=== PATIENT | male | born 1960 | race Two or more races ===

== ENCOUNTER 2025-03-18 17:29 | Inpatient (IN) | payer MEDICARE, MEDICAID, SELFPAY ==
[2025-03-18] VITALS (10 sets, daily range): BP systolic 140–212; BP diastolic 87–112; PULSE 55–73; RESP 17–22; TEMP 36.9–37; O2SAT 93–98
--- NOTE | 2025-03-18 17:34 | EKG_ITS ---
[facility] Test Date: 2025-03-18 Pat Name: TRUNG STEVENSON Department: Room: - Gender: Male Spanish Lecturer: : 1960 Requested By: Luma Hearn Order Number: [id number] Reading MD: Luma Hearn Measurements Intervals Bunch Rate: 66 P: 27 ME: 172 QRS: 8 QRSD: 102 T: 30 QT: 408 QTc: 430 Interpretive Statements SINUS RHYTHM NONSPECIFIC ST & T-WAVE ABNORMALITY Compared to ECG 07/03/2021 15:55:00 T-wave abnormality now present /store/S0/[id number]
--- NOTE | 2025-03-18 17:57 | XR_ITS ---
EXAMINATION: PA chest single view TECHNIQUE: Upright PA chest single view Date and time: March 18, 2025, 1813 hours, comparison July 03, 2021 INDICATIONS: Chest pain today. FINDINGS: Normal heart size Lungs are clear. The osseous structures are intact. IMPRESSION: No active disease
--- NOTE | 2025-03-18 17:58 | PD.EDRME ---
Rapid Medical Screening Exam RME Arrival date/time: 03/18/25 17:29 This is a case of 64-year-old male with history of hypertension hyperlipidemia came into the emergency room due to chest pain on and off for 2 days associated with elevated blood pressure denies any numbness weakness tingling sensation no blurring of vision denies any palpitation no shortness of breath Chief Complaint: Chest Pain Time Seen by Provider: 03/18/25 17:57 Vital signs: Vital Signs Temperature 98.6 F 03/18/25 17:36 Pulse Rate 66 03/18/25 17:36 Respiratory Rate 18 03/18/25 17:36 Blood Pressure 202/100 H 03/18/25 17:36 Pulse Oximetry (%) 98 03/18/25 17:36 Oxygen Delivery Method Room Air 03/18/25 17:36
[2025-03-18 18:42] LABS: Basophils # (Auto) 0.1 Thou/mm3 (0.0-0.2); Basophils % (Auto) 1 % (0-2.5); Eosinophils # (Auto) 0.4 Thou/mm3 (0.0-0.5); Eosinophils % (Auto) 3 % (0-10); Hematocrit 51.1 % (41.0-53.0); Hemoglobin 17.9 g/dL (13.5-16.0); Immature Granulocytes Auto 0.08 Thou/mm3 (0.00-0.00); Lymphocytes # (Auto) 2.8 Thou/mm3 (1.0-4.8); Lymphocytes % (Auto) 23 % (10-50); Mean Corpuscular HGB Conc 35.0 g/dl (31.0-37.0); Mean Corpuscular Hemoglobin 28.9 pg (25.0-35.0); Mean Corpuscular Volume 82 fL (80-100); Monocytes # (Auto) 0.9 Thou/mm3 (0.0-0.8); Monocytes % (Auto) 8 % (0-12); Neutrophils # (Auto) 7.9 Thou/mm3 (1.8-7.7); Neutrophils % (Auto) 65 % (37-80); Nucleated Red Blood Cell # 0.00 Thou/mm3 (0.00-0.00); Nucleated Red Blood Cell % 0 /100 WBC (0); Platelet Count 335 Thou/mm3 (140-440); RDW Standard Deviation 44.7 fL (35.1-43.9); Red Blood Count 6.20 Miln/mm3 (4.50-5.90); White Blood Count 12.1 Thou/mm3 (3.8-10.6)
[2025-03-18 18:50] LABS: Collection Type, Urine Clean Catch; Squamous Epithelial Cell,Urine 0 /hpf (0-5)
[2025-03-18 19:03] LABS: Bilirubin,Urine Negative (Negative); Blood,Urine 1+ (Negative); Clarity,Urine Clear (Clear/Hazy); Color,Urine Colorless (Lt Yel-Yel); Glucose, Urine 4+ (Negative); Ketones,Urine Negative (Negative); Leukocyte Esterase,Urine Negative (Negative); Nitrite,Urine Negative (Negative); PH,Urine 6.0 (5.0-7.0); Protein,Urine 1+ (Neg - Trace); RBC,Urine 3 /hpf (0-3); Specific Gravity,Urine 1.012 (1.001-1.035); Urobilinogen,Urine Negative mg/dL (0.0-1.0); WBC,Urine 1 /hpf (0-5)
[2025-03-18 19:04] LABS: B-Type Natriuretic Peptide 36 pg/mL (0-100)
[2025-03-18 19:06] LABS: Alanine Aminotransferase 29 U/L (10-49); Albumin, Serum 4.9 gm/dL (3.4-4.8); Albumin/Globulin Ratio 1.7 (1.2-2.2); Alkaline Phosphatase 89 U/L (46-116); Anion Gap 12 (7-16); Aspartate Amino Transferase 25 U/L (0-34); BUN/Creatinine Ratio 11 Ratio (12-20); Bilirubin,Total 0.8 mg/dL (0.3-1.2); Blood Urea Nitrogen 14 mg/dL (9-23); Calcium 9.9 mg/dL (8.3-10.6); Calcium (Corrected) 9.9 mg/dL (8.5-10.1); Carbon Dioxide 25.5 mMol/L (20.0-31.0); Chloride 103 mMol/L (98-107); Creatinine (Component) 1.3 mg/dL (0.6-1.3); Globulin 2.9 gm/dL (2.3-3.5); Glucose 134 mg/dL (74-106); Osmolality,Calculated 281 (275-295); Potassium 3.6 mMol/L (3.4-5.1); Sodium 140 mMol/L (136-145); Total Protein 7.8 gm/dL (5.7-8.2); eGFR > 60 See Note
[2025-03-18 19:07] LABS: Troponin I 0.081 ng/mL (0.0-0.045)
[2025-03-18 19:09] LABS: D-Dimer < 250 ng/mL (<600)
--- NOTE | 2025-03-18 20:36 | PD.EDCHEST ---
ED Chest Pain RME/HPI General Chief Complaint: Chest Pain Stated Complaint: CHEST PAIN RADAITES L ARM Time Seen by Provider: 03/18/25 17:57 Source: patient and family Arrival date/time: 03/18/25 17:29 RME / HPI RME / HPI narrative: 03/18/25 17:29 This is a case of 64-year-old male with history of hypertension hyperlipidemia came into the emergency room due to chest pain on and off for 2 days associated with elevated blood pressure denies any numbness weakness tingling sensation no blurring of vision denies any palpitation no shortness of breath DR. GRISELDA SCHUMACHER ED EVALUATION: 64 y/o male with Hx of presents to ED c/o chest pain radiating to the left arm s/p going to the gym this morning and have worsened throughout the day. Denies any surgical history. Denies fevers, chills, nausea, vomiting, cough, runny nose, abdominal pain, dysuria, hematuria, melena, and bloody stools. Also denies drugs, alcohol, and tobacco. No recent travel or sick contacts. Related Data Home Medications ?Medication ?Instructions ?Recorded ?Confirmed amlodipine 10 mg tablet (Norvasc) 10 mg PO QDAY #0 tabs 05/21/16 03/19/25 valsartan 160 mg tablet (Diovan) 160 mg PO QDAY 02/23/19 03/19/25 atorvastatin 80 mg tablet 80 mg PO QDAY 04/18/21 03/19/25 atorvastatin 20 mg tablet 20 mg PO QDAY 03/19/25 03/19/25 empagliflozin 12.5 mg-metformin ER 1 tab PO BID 03/19/25 03/19/25 1,000 mg tablet,extended rel 24 hr (Synjardy XR) ergocalciferol (vitamin D2) 1,250 1,250 mcg PO QWEEK 03/19/25 03/19/25 mcg (50,000 unit) capsule fexofenadine 180 mg tablet 180 mg PO .QD 03/19/25 03/19/25 losartan 100 1 tab PO .QD 03/19/25 03/19/25 mg-hydrochlorothiazide 25 mg tablet multivitamin 1 tab PO .QD 03/19/25 03/19/25 propranolol 20 mg tablet 20 mg PO Q8H 03/19/25 03/19/25 Allergies Allergy/AdvReac Type Severity Reaction Status Date / Time No Known Allergies Allergy Verified 03/18/25 17:32 Review of Systems Review of Systems Systems Reviewed: All systems reviewed, normal except as documented Past Medical History Past Medical History NEUROLOGIC: 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 APPEARANCE: The patient is alert awake oriented X-3 in no distress, lying down comfortably, does not look ill/toxic. Patient has good eye contact. Patient is cooperative. VITALS: All vitals were reviewed and the pulse ox is 96% on room air which is normal according to my interpretation. HEENT: Normocephalic, atraumatic. Pupils are equal and reactive. Oral mucosa is moist. Patent Nares NECK: Supple, nontender, no thyromegaly, no meningismus, no JVD CHEST: Symmetrical, atraumatic, and with equal expansion , Nontender on palpation no deformity and no crepitus. CARDIOVASCULAR: Heart regular rhythm no murmur or gallop rub or extra beats. LUNGS: Clear to auscultation bilaterally with symmetrical chest rise. No laboring tachypnea or wheezing. No intercostal subcostal retraction. No rales and no rhonchi. ABDOMEN: Soft, flat, nontender to palpation, no guarding or rebound tenderness. There are no abnormal masses palpated. Active and normal bowel sounds. EXTREMITIES: Nontender. No edema. No cyanosis. Patient is able to move all 4 extremities well, with full ROM and good CSM. SKIN: Warm and dry, no jaundice or rashes noted. NEURO: Patient is MORALES x 4, Cranial nerves II through XII grossly intact. There is no focal neurologic deficits noted. 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 PSYCHIATRIC: Patient is in normal mood and affect. Course Quality Measures none Orders Category Date Time Status EKG (ED ONLY) *Do not use* NOW Care 03/18/25 17:34 Completed EKG (ED ONLY) *Do not use* NOW Care 03/18/25 20:56 Completed Notify provider NOW Care 03/18/25 20:55 Active EKG (ED Only) Stat Exams 03/18/25 17:34 Draft EKG (ED Only) Stat Exams 03/18/25 20:56 Draft XR chest 1V Stat Exams 03/18/25 17:57 Completed BNP [B-Type Natriuretic Peptide] Stat Lab 03/18/25 18:25 Completed CBC Stat Lab 03/18/25 18:25 Completed Comprehensive Metabolic Panel Stat Lab 03/18/25 18:25 Completed D-Dimer Stat Lab 03/18/25 18:25 Completed Partial Thromboplastin Time AM DRAW Lab 03/20/25 05:00 Ordered Prothrombin Time with INR AM DRAW Lab 03/20/25 05:00 Ordered Troponin I Stat Lab 03/18/25 18:25 Completed Troponin I Stat Lab 03/18/25 21:09 Completed Urinalysis Stat Lab 03/18/25 18:31 Completed Aspirin Chew Med 03/18/25 20:45 Discontinued 324 mg PO X1 ONE Heparin Inj Med 03/18/25 20:55 Discontinued 4,000 unit IV X1 ONE Heparin/D5w 25K 250 ML Ivpb [Heparin in D5w Ivpb] Med 03/18/25 21:00 Discontinued 25,000 unit in 250 ml IV 12 units/kg/hr Nitroglycerin [Nitrostat 1/150] Med 03/18/25 20:45 Active 0.4 mg SL Q5MIN PRN cloNIDine HCL [Catapres] Med 03/18/25 17:57 Discontinued 0.2 mg PO X1 ONE hydrALAZINE INJ [Apresoline Inj] Med 03/18/25 20:59 Discontinued 10 mg IVP X1 ONE Vital Signs Vital signs: Vital Signs Temperature 98.6 F 03/18/25 17:36 Pulse Rate 66 03/18/25 17:36 Respiratory Rate 18 03/18/25 17:36 Blood Pressure 202/100 H 03/18/25 17:36 Pulse Oximetry (%) 98 03/18/25 17:36 Oxygen Delivery Method Room Air 03/18/25 17:36 Chest Pain MDM Narrative MDM Narrative:: Scribe Attestation: Yokasta Chapman am scribing for and in the presence of Dr. Almodovar. Provider Notation: Although this document has been carefully reviewed, there may still be some phonetic and other typographical errors. These errors are purely grammatical due to imperfections in the software program and should not be construed in any way to compromise the substance of the patient's medical care during this visit. Patient is a 64-year-old male with medical history notable for hypertension, hyperlipidemia, diabetes is in emerged primary concerns for chest pain that radiates to the left upper extremity. Vital signs and exam as listed. Concern for ACS arrhythmia electrolyte abnormality viral syndrome pneumonia hypertensive emergency among others. Patient was evaluated by prior provider. They ordered labs EKG and chest x-ray. On my evaluation patient continues to have chest pain. Ordered aspirin, sublingual nitroglycerin. Patient's blood pressure has improved since he arrived. Previously was 202/100 currently is 192/100, will provide antihypertensive medication to lower blood pressure and volume total of approximately 20% while in the ED. Labs were leukocytosis 12.1, no left shift. Hemoglobin 17.9. Dimer not elevated. No acute metabolic disturbance. Troponin is 0.081. Urinalysis without evidence of infection. Chest x-ray unremarkable. EKG performed today at 1736 notable for sinus rhythm, heart rate 66, normal intervals, patient has ST depressions in lead I, 2; has ST elevation in elevation in lead aVR, also with depressions in lead V2, V3, elevations in V5 V6. Consulted on-call commissary agent Dr. Moeller, recommends admission, heparin. Repeat EKG shows dynamic changes. Discussed them with on-call commissary agent Dr. Moeller, not a cardiac alert. States that if his troponin increases he will likely perform a cardiac catheterization. Discussed case with hospitalist service, send accepts patient for admission. 9:20p reevaluated patient, patient is GCS 15, hemodynamically stable nondistressed blood pressure controlled, chest pain resolved. Patient data External records reviewed:: [facility] previous records (Reviewed prior ED records from 07/03/21. Patient was seen for Weakness.) Clinical information provided by:: patient Social determinants that could affect healthcare access:: none Patient has the following chronic illnesses:: HTN, Hypercholesterolemia How is presenting disease/condition affected by chronic disease/condition?: exacerbated by Evaluation data The following diagnostics were reviewed and interpreted by me:: lab results, radiology exam(s) and EKG tracing(s) (EKG (II) performed today at 21:18 notable for sinus rhythm, heart rate 63, normal intervals, patient has ST depressions in lead II, 3 eVF; has T-wave elevation in Lead III, also with depressions in V3, V4, V5, and V6, per my interpretation.) Lab and/or radiology exams considered but not ordered:: None Interpretation Summary: RADIOLOGY Chest X-Ray: FINDINGS: Normal heart size Lungs are clear. The osseous structures are intact. IMPRESSION: No active disease Medications / Prescriptions Medications or Prescriptions considered but not ordered:: None Medication administrations:: Medication Administration History Acetaminophen (Acetaminophen 325 Mg Tablet) 650 mg PO Q6H PRN PRN Reason: Fever >100.4 Stop: 04/17/25 21:43 Acetaminophen (Acetaminophen 325 Mg Tablet) 650 mg PO Q6H PRN PRN Reason: PAIN SCALE 1-3 (mild Stop: 04/17/25 21:43 Last Admin: 03/19/25 02:12 Dose: 650 mg Documented By: ROXANN Amlodipine Besylate (Amlodipine Besylate 5 Mg Tablet) 10 mg PO QDAY [facility]CEDEZ Stop: 04/18/25 08:59 Last Admin: 03/19/25 07:45 Dose: 10 mg Documented By: ELADIA Aspirin (Aspirin Ec 81 Mg Tabec) 81 mg PO QDAY MERCEDEZ Stop: 04/18/25 08:59 Last Admin: 03/19/25 07:45 Dose: 81 mg Documented By: ELADIA Atorvastatin Calcium (Atorvastatin Calcium 20 Mg Tablet) 80 mg PO HS [facility] Stop: 04/18/25 20:59 Carvedilol (Carvedilol 12.5 Mg Tablet) 25 mg PO BIDWM MERCEDEZ Stop: 04/18/25 07:59 Last Admin: 03/19/25 17:21 Dose: 25 mg Documented By: Admin: 03/19/25 07:44 Dose: 25 mg Documented By: ELADIA Dextrose (Dextrose 50%-Water Inj 50 Ml Syringe) 25 ml IV Q15MIN PRN PRN Reason: BG 50-70 responsive npo pt Stop: 04/18/25 05:54 Dextrose (Dextrose 50%-Water Inj 50 Ml Syringe) 50 ml IV Q15MIN PRN PRN Reason: BG <50 OR BG <70 & pt unresponsive Stop: 04/18/25 05:54 Glucagon (Glucagon Inj 1 Mg Vial) 1 mg IM Q15MIN PRN PRN Reason: BG <70, and no IV access Insulin Human Lispro (Insulin Lispro (Admelog) 1 Unit/0.01 Ml Unit) 0 unit SC Q6HR MERCEDEZ; Protocol Stop: 04/18/25 05:59 Last Admin: 03/19/25 17:29 Dose: 4 unit Documented By: ELADIA Co-signed By: CYNDIE Admin: 03/19/25 12:00 Dose: Not Given Documented By: EC Non-Admin Reason: Per Protocol Admin: 03/19/25 06:08 Dose: Not Given Documented By: MLD Non-Admin Reason: Per Protocol Labetalol HCl (Labetalol Inj 5 Mg/Ml Vial 20 Ml) 10 mg IVP PRN PRN PRN Reason: SBP>180 Stop: 04/17/25 22:28 Morphine Sulfate (Morphine Sulf Inj 4 Mg/Ml Vial) 2 mg IVP Q4HR PRN PRN Reason: PAIN SCALE 7-10 (Severe Last Admin: 03/19/25 00:16 Dose: 2 mg Documented By: ELADIA(2) Nitroglycerin (Nitroglycerin 0.4 Mg Subl Btl #25) 0.4 mg SL Q5MIN PRN PRN Reason: CHEST PAIN Last Admin: 03/19/25 07:44 Dose: 0.4 mg Documented By: Admin: 03/18/25 21:03 Dose: 0.4 mg Documented By: ELADIA(2) Comments: two of three Ondansetron HCl (Ondansetron Inj 2 Mg/Ml Inj 2 Ml) 4 mg IVP Q6H PRN; Protocol PRN Reason: NAUSEA OR VOMITING Stop: 04/17/25 21:43 Sennosides (Senna Tablet) 1 tab PO QDAY PRN; Protocol PRN Reason: constipation Stop: 04/17/25 21:43 Ticagrelor (Ticagrelor 90 Mg Tablet) 90 mg PO BID [facility] Stop: 04/18/25 20:59 Valsartan (Valsartan 80 Mg Tablet) 160 mg PO QDAY MERCEDEZ Stop: 04/18/25 08:59 Last Admin: 03/19/25 07:46 Dose: 160 mg Documented By: ELADIA Discontinued Medications Adenosine (Adenosine Inj 3 Mg/Ml Vial) Confirm Administered Dose 30 mg .ROUTE .STK-MED ONE Stop: 03/19/25 08:57 Last Admin: 03/19/25 09:47 Dose: Not Given Documented By: Non-Admin Reason: Duplicate Medication on eMAR Amiodarone HCl (Amiodarone Inj 50 Mg/Ml Vial 9 Ml) Confirm Administered Dose 900 mg IV .STK-MED ONE Stop: 03/19/25 08:57 Last Admin: 03/19/25 09:48 Dose: Not Given Documented By: Non-Admin Reason: Duplicate Medication on eMAR Aspirin (Aspirin 81 Mg Chew) 324 mg PO X1 ONE Stop: 03/18/25 20:46 Last Admin: 03/18/25 21:05 Dose: 324 mg Documented By: ELADIA(2) Aspirin (Aspirin Ec 81 Mg Tabec) 81 mg PO X1 ONE Stop: 03/18/25 21:51 Last Admin: 03/18/25 23:49 Dose: Not Given Documented By: AC(2) Non-Admin Reason: Discontinued Aspirin (Aspirin 325 Mg Tablet) Confirm Administered Dose 325 mg .ROUTE .STK-MED ONE Stop: 03/19/25 08:57 Last Admin: 03/19/25 09:48 Dose: Not Given Documented By: Non-Admin Reason: Duplicate Medication on eMAR Aspirin (Aspirin 81 Mg Chew) Confirm Administered Dose 324 mg .ROUTE .STK-MED ONE Stop: 03/19/25 08:57 Last Admin: 03/19/25 09:48 Dose: Not Given Documented By: Non-Admin Reason: Duplicate Medication on eMAR Atropine Sulfate (Atropine Sulf Inj 1 Mg/Ml Vial) Confirm Administered Dose 1 mg .ROUTE .STK-MED ONE Stop: 03/19/25 08:56 Last Admin: 03/19/25 09:09 Dose: Not Given Documented By: DANYELLE Non-Admin Reason: Duplicate Medication on eMAR Clonidine (Clonidine Hcl 0.1 Mg Tablet) 0.2 mg PO X1 ONE Stop: 03/18/25 17:58 Last Admin: 03/18/25 21:01 Dose: 0.2 mg Documented By: ELADIA(2) Epinephrine HCl (Epinephrine Inj 0.1 Mg/Ml Syringe 10ml) Confirm Administered Dose 1 mg .ROUTE .STK-MED ONE Stop: 03/19/25 08:58 Last Admin: 03/19/25 09:48 Dose: Not Given Documented By: Non-Admin Reason: Duplicate Medication on eMAR Fentanyl Citrate (Fentanyl Cit Inj 50 Mcg/Ml Amp 2ml) Confirm Administered Dose 100 mcg .ROUTE .STK-MED ONE Stop: 03/19/25 08:56 Last Admin: 03/19/25 09:09 Dose: Not Given Documented By: DANYELLE Non-Admin Reason: Duplicate Medication on eMAR Flumazenil (Flumazenil Inj 0.1 Mg/Ml Vial 10 Ml) Confirm Administered Dose 1 mg .ROUTE .STK-MED ONE Stop: 03/19/25 08:57 Last Admin: 03/19/25 09:48 Dose: Not Given Documented By: Non-Admin Reason: Duplicate Medication on eMAR Heparin Sodium (Porcine) (Heparin Sod Inj 5000 Unit/Ml Vial) 4,000 unit IV X1 ONE; Protocol Stop: 03/18/25 20:56 Last Admin: 03/18/25 23:57 Dose: 4,000 unit Documented By: ELADIA(2) Co-signed By: QUYEN Comments: administering late due to waiting for labs to result prior to administration. Heparin Sodium (Porcine) (Heparin Sod Inj 1000 Unit/Ml Vial 10 Ml) Confirm Administered Dose 20,000 unit .ROUTE .STK-MED ONE Stop: 03/19/25 08:58 Last Admin: 03/19/25 09:48 Dose: Not Given Documented By: Non-Admin Reason: Duplicate Medication on eMAR Hydralazine HCl (Hydralazine Inj 20 Mg/Ml Vial) 10 mg IVP X1 ONE Stop: 03/18/25 21:00 Last Admin: 03/18/25 22:53 Dose: Not Given Documented By: ELADIA(2) Non-Admin Reason: Cancelled by Provider Comments: Dr. Almodovar gave a verbal order to cancel the medication. Hydrochlorothiazide (Hydrochlorothiazide 12.5 Mg Capsule) 25 mg PO QDAY MERCEDEZ Stop: 04/18/25 08:59 Heparin Sodium/Dextrose (Heparin In D5w Ivpb) 25,000 unit in 250 mls @ 9.961 mls/hr IV .Q24H [facility]CEDEZ; Protocol Stop: 04/01/25 20:59 Last Admin: 03/18/25 23:59 Dose: 12 units/kg/hr, 9.961 mls/hr Documented By: ELADIA(2) Co-signed By: QUYEN Potassium Chloride (Kcl Ivpb) 10 meq in 100 mls @ 100 mls/hr IV Q1H [facility] Stop: 03/19/25 12:46 Last Admin: 03/19/25 14:53 Dose: 100 mls/hr Documented By: Infusion: 03/19/25 13:11 Dose: Infused Documented By: Admin: 03/19/25 12:11 Dose: 100 mls/hr Documented By: Infusion: 03/19/25 12:11 Dose: Infused Documented By: Admin: 03/19/25 11:14 Dose: 100 mls/hr Documented By: Infusion: 03/19/25 10:09 Dose: Infused Documented By: Admin: 03/19/25 09:09 Dose: 100 mls/hr Documented By: DOUGLAS Nitroglycerin/Dextrose (Nitroglycerin In D5w Ivpb) Confirm Administered Dose 50 mg in 250 mls @ ud .ROUTE .STK-MED ONE Stop: 03/19/25 08:58 Last Admin: 03/19/25 09:48 Dose: Not Given Documented By: Non-Admin Reason: Duplicate Medication on eMAR Sodium Chloride (Ns 0.45%) 500 mls @ 100 mls/hr IV .Q5H ONE Stop: 03/19/25 15:34 Last Admin: 03/19/25 11:00 Dose: 100 mls/hr Documented By: INGE Lidocaine HCl (Lidocaine Inj Pf 1% 30 Ml Vial) Confirm Administered Dose 30 ml .ROUTE .STK-MED ONE Stop: 03/19/25 08:58 Last Admin: 03/19/25 09:48 Dose: Not Given Documented By: Non-Admin Reason: Duplicate Medication on eMAR Losartan Potassium (Losartan Potassium 25 Mg Tablet) 100 mg PO QDAY MERCEDEZ Stop: 04/18/25 08:59 Metoprolol Tartrate (Metoprolol Tartrate Inj 1 Mg/Ml Amp 5 Ml) Confirm Administered Dose 15 mg .ROUTE .STK-MED ONE Stop: 03/19/25 08:56 Last Admin: 03/19/25 09:09 Dose: Not Given Documented By: RDNadiya Non-Admin Reason: Duplicate Medication on eMAR Midazolam HCl (Midazolam Inj 1 Mg/Ml Vial 2 Ml) Confirm Administered Dose 2 mg .ROUTE .STK-MED ONE Stop: 03/19/25 08:56 Last Admin: 03/19/25 09:09 Dose: Not Given Documented By: RDL Non-Admin Reason: Duplicate Medication on eMAR Naloxone HCl (Naloxone Inj 0.4 Mg/Ml Vial) Confirm Administered Dose 0.4 mg .ROUTE .STK-MED ONE Stop: 03/19/25 08:56 Last Admin: 03/19/25 09:47 Dose: Not Given Documented By: Non-Admin Reason: Duplicate Medication on eMAR Phenylephrine HCl (Phenylephrine Inj In Ns 100 Mcg/Ml 10 Ml Syringe) Confirm Administered Dose 1,000 mcg .ROUTE .STK-MED ONE Stop: 03/19/25 08:58 Last Admin: 03/19/25 09:48 Dose: Not Given Documented By: Non-Admin Reason: Duplicate Medication on eMAR Potassium Chloride (Potassium Chloride 20 Meq Tabcr) 40 meq PO X1 ONE Stop: 03/19/25 09:06 Last Admin: 03/19/25 09:13 Dose: 40 meq Documented By: DOUGLAS Ticagrelor (Ticagrelor 90 Mg Tablet) Confirm Administered Dose 180 mg .ROUTE .STK-MED ONE Stop: 03/19/25 08:54 Last Admin: 03/19/25 09:08 Dose: Not Given Documented By: RDL Non-Admin Reason: Duplicate Medication on eMAR Ticagrelor (Ticagrelor 90 Mg Tablet) 180 mg PO X1 ONE Stop: 03/19/25 09:07 Last Admin: 03/19/25 09:08 Dose: 180 mg Documented By: DANYELLE Verapamil HCl (Verapamil Inj 2.5 Mg/Ml Vial 2 Ml) Confirm Administered Dose 5 mg .ROUTE .STK-MED ONE Stop: 03/19/25 08:57 Last Admin: 03/19/25 09:48 Dose: Not Given Documented By: JR Non-Admin Reason: Duplicate Medication on eMAR See above if any Consultations Consultation(s) initiated? (list below): Yes Consultation #1 (Physician, Specialty, Details): Discussed with Dr. Richter for admission. Reviewed the patient?s HPI, PMHx, lab and/or radiology results. Discussed treatment plan. Will consult an admission to the hospitalist. Time: 20:40 Consultation #2 (Physician, Specialty, Details): After review of most recent EKG and case, Dr. Moeller states patient is not a cardiac alert and to admit patient here, continue on Heparin, and if Troponin I uptrends, to call him back. Time: 21:21 Diagnosis Chest Pain Differential Diagnosis: stable angina, unstable angina pectoris, atypical chest pain, st elevation myocardial infarction, costochondritis and chest pain Most likely diagnosis given after review of the tests above:: Non-ST elevation MD (NSTEMI), Chest pain, Abnormal EKG Admission Indicated Admission indicated?: indicated Explain why admission is indicated or not indicated:: Non-ST elevation MD (NSTEMI), Chest pain, Abnormal EKG Admission Request Was there a request for admission?: Yes Admission Attestation Admission request attestation: Discussed case with [] from Hospitalist service regarding admission. Discussed patients ED course, exam findings, labs, and radiology results. The Hospitalist [agrees,declines] to accept the patient for admission. Disposition Plan Disposition Plan: Admit Critical Care Time Critical Care Time Critical Care Time: Yes Total Critical Care Time (min.): 60 Attestation: Due to a high probability of clinically significant, life threatening deterioration, the patient required my highest level of preparedness to intervene emergently and I personally spent this critical care time directly and personally managing the patient. This critical care time included obtaining a history; examining the patient; pulse oximetry; ordering and review of studies; arranging urgent treatment with development of a management plan; evaluation of patient's response to treatment; frequent reassessment; and, discussions with other providers. This critical care time was performed to assess and manage the high probability of imminent, life-threatening deterioration that could result in multi-organ failure. It was exclusive of separately billable procedures and treating other patients and teaching time. Please see MDM section and the rest of the note for further information on patient assessment and treatment. Discharge Plan Plan Patient Disposition: Admit Acute Care w/in Hospital Problem List Clinical Impression: Non-ST elevation MD (NSTEMI), Chest pain, Abnormal EKG Patient/Caregiver Discharge Instructions Discharge Activity: activity as tolerated
--- NOTE | 2025-03-18 20:56 | EKG_ITS ---
[facility] Test Date: 2025-03-18 Pat Name: TRUNG STEVENSON Department: Room: - Gender: Male Service Agent: : 1960 Requested By: Cat Wolf Order Number: [id number] Reading MD: Cat Wolf Measurements Intervals [place] Rate: 63 P: 22 MO: 174 QRS: 9 QRSD: 102 T: -15 QT: 413 QTc: 425 Interpretive Statements SINUS RHYTHM NONSPECIFIC ST & T-WAVE ABNORMALITY Compared to ECG 03/18/2025 17:36:02 No significant changes /store/S0/[id number]
[2025-03-18] MEDS: NITROGLYCERIN 0.4 MG SUBL BTL #25 SL (21:03)
[2025-03-18] MEDS: ASPIRIN 81 MG CHEW 324 MG PO (21:05)
--- NOTE | 2025-03-18 21:54 | PD.RESHP ---
Documentation for date of: 03/18/25 [facility] History of Present Illness Chief complaint: Chest pain radiating to the arm History of present illness: This is a 64-year-old male with past medical history of hypertension, diabetes, hyperlipidemia presented to the ED with complaints of chest pain since 03/18 morning. He describes this chest pain as squeezing on the sternum and left side of the chest 10 on 10 pain scale radiating to the left arm not relieved on taking rest. He denies any dizziness, tingling sensation, blurriness of vision, shortness of breath, nausea, vomiting, fever, cough, palpitations, urinary frequency, urinary urgency or any other abdominal pain. Today ED visit initial vitals blood pressure 202/100, pulse rate 66, respiratory 18, temperature 98.6 F, saturating oxygen 98% on room air Pertinent lab findings are hemoglobin 17.9, WBC 12.1, hematocrit 51.1, troponin 0.081. Urinalysis urine protein 1+, urine glucose [address] segment depression in lead I, lead II, V2,V4, V5, Treatment given in ED started on heparin drip,Clonidine 0.2 mg, aspirin mg, nitroglycerin 0.4 mg. Past medical history: History of hypertension takes carvedilol 25 mg 2 times a day, valsartan 160 mg once a day, hydrochlorothiazide once a day, amlodipine 10 mg once a day and, Hyperlipidemia atorvastatin 80 mg once a day. Takes metformin for his diabetes. Family history: History of hypertension in mother Social history: Denies any smoking alcohol or any other drug usage. Goes to gym for 2 hours every day. Allergic history: None Review of Systems Review of Systems Systems Reviewed: All systems reviewed, normal except as documented Exam Vital Signs Temp Pulse Resp BP Pulse Ox O2 Del Method 98.5 F 73 21 H 192/100 H 96 Room Air 03/18/25 20:18 03/18/25 21:03 03/18/25 20:18 03/18/25 21:03 03/18/25 20:18 03/18/25 20:18 Narrative Exam GENERAL: NAD, AAOx3 HEENT: Moist mucosa. Eyes open, symmetrical, & clear CARDIO: Regular rhythm Noted. No Murmurs. PULM: No noted coughing/dyspnea CTA B/L, no R/W/R GI: Abdomen soft, nondistended, Non Tender SKIN/MSK/EXT: No wounds/rashes/amputations, no pain on palpation.No Edema. Pedal pulses present B/L NEURO: AAOx3, no focal neuro deficits, able to move all 4 extremities Results: Labs 03/19/25 04:18 03/19/25 04:18 Labs: Short CBC 03/18/25 Range/Units 18:25 WBC 12.1 H (3.8-10.6) Thou/mm3 Hgb 17.9 H* (13.5-16.0) g/dL Hct 51.1 (41.0-53.0) % Plt Count 335 (140-440) Thou/mm3 BMP 03/18/25 18:25 Sodium 140 Potassium 3.6 Chloride 103 Carbon Dioxide 25.5 BUN 14 Creatinine 1.3 Glucose 134 H Calcium 9.9 Cardiac Enzymes 03/18/25 Range/Units 18:25 Troponin I 0.081 H* (0.0-0.045) ng/mL Liver Function 03/18/25 Range/Units 18:25 Total Bilirubin 0.8 (0.3-1.2) mg/dL AST 25 (0-34) U/L ALT 29 (10-49) U/L Alkaline Phosphatase 89 (46-116) U/L Albumin 4.9 H (3.4-4.8) gm/dL Urine 03/18/25 Range/Units 18:31 Urine Color Colorless A (Lt Yel-Yel) Urine Clarity Clear (Clear/Hazy) Urine pH 6.0 (5.0-7.0) Ur Specific [place] 1.012 (1.001-1.035) Urine Protein 1+ A (Neg - Trace) Urine Glucose (UA) 4+ A (Negative) Quality Measures Quality Measures none Advance care planning discussed with:: patient Medications Home Medications and Allergies Home Medications ?Medication ?Instructions ?Recorded ?Confirmed ?Type amlodipine 10 mg tablet (Norvasc) 10 mg PO QDAY #0 tabs 05/21/16 03/19/25 History valsartan 160 mg tablet (Diovan) 160 mg PO QDAY 02/23/19 03/19/25 History atorvastatin 80 mg tablet 80 mg PO QDAY 04/18/21 03/19/25 History atorvastatin 20 mg tablet 20 mg PO QDAY 03/19/25 03/19/25 History empagliflozin 12.5 mg-metformin ER 1 tab PO BID 03/19/25 03/19/25 History 1,000 mg tablet,extended rel 24 hr (Synjardy XR) ergocalciferol (vitamin D2) 1,250 1,250 mcg PO QWEEK 03/19/25 03/19/25 History mcg (50,000 unit) capsule fexofenadine 180 mg tablet 180 mg PO .QD 03/19/25 03/19/25 History losartan 100 1 tab PO .QD 03/19/25 03/19/25 History mg-hydrochlorothiazide 25 mg tablet multivitamin 1 tab PO .QD 03/19/25 03/19/25 History propranolol 20 mg tablet 20 mg PO Q8H 03/19/25 03/19/25 History Allergies Allergy/AdvReac Type Severity Reaction Status Date / Time No Known Allergies Allergy Verified 03/18/25 17:32 Visit Medications Acetaminophen (Acetaminophen 325 Mg Tablet) 650 mg PO Q6H PRN PRN Reason: Fever >100.4 Stop: 04/17/25 21:43 Acetaminophen (Acetaminophen 325 Mg Tablet) 650 mg PO Q6H PRN PRN Reason: PAIN SCALE 1-3 (mild Stop: 04/17/25 21:43 Aspirin (Aspirin Ec 81 Mg Tabec) 81 mg PO X1 ONE Stop: 03/18/25 21:51 Atorvastatin Calcium (Atorvastatin Calcium 20 Mg Tablet) 80 mg PO HS MERCEDEZ Stop: 04/18/25 20:59 Heparin Sodium (Porcine) (Heparin Sod Inj 5000 Unit/Ml Vial) 5,000 unit 60 unit/kg (5000 unit) IV X1 ONE; Protocol Stop: 03/18/25 20:56 Heparin Sodium/Dextrose (Heparin In D5w Ivpb) 25,000 unit in 250 mls @ 9.961 mls/hr IV .Q24H MERCEDEZ; Protocol Stop: 04/01/25 20:59 Morphine Sulfate (Morphine Sulf Inj 4 Mg/Ml Vial) 2 mg IVP Q4HR PRN PRN Reason: PAIN SCALE 7-10 (Severe Nitroglycerin (Nitroglycerin 0.4 Mg Subl Btl #25) 0.4 mg SL Q5MIN PRN PRN Reason: CHEST PAIN Last Admin: 03/18/25 21:03 Dose: 0.4 mg Ondansetron HCl (Ondansetron Inj 2 Mg/Ml Inj 2 Ml) 4 mg IVP Q6H PRN; Protocol PRN Reason: NAUSEA OR VOMITING Stop: 04/17/25 21:43 Sennosides (Senna Tablet) 1 tab PO QDAY PRN; Protocol PRN Reason: constipation Stop: 04/17/25 21:43 Discontinued Medications Aspirin (Aspirin 81 Mg Chew) 324 mg PO X1 ONE Stop: 03/18/25 20:46 Last Admin: 03/18/25 21:05 Dose: 324 mg Clonidine (Clonidine Hcl 0.1 Mg Tablet) 0.2 mg PO X1 ONE Stop: 03/18/25 17:58 Last Admin: 03/18/25 21:01 Dose: 0.2 mg Hydralazine HCl (Hydralazine Inj 20 Mg/Ml Vial) 10 mg IVP X1 ONE Stop: 03/18/25 21:00 Assessment & Plan Plan This is a 64-year-old male with past medical history of hypertension, diabetes, hyperlipidemia presented to the ED with complaints of squeezing type of chest pain since 03/18 morning radiating to left arm. He was admitted for NSTEMI. # NSTEMI?acute coronary syndrome Squeezing type of central chest pain radiating to the left arm not relieved on rest. History of hypertension, diabetes, hyperlipidemia. Initial blood pressure readings are 202/100. Initial troponin 0.081-->0.[address] segment depression in lead I, 2, V2, V4, V5 Loading dose of aspirin given, nitroglycerin in ED ED consulted cardiology and recommended heparin. If troponins trend up- possible catheterization. ?Started on heparin drip ?Troponins 0.081--> 0.310?continue to monitor troponins. -Started on aspirin 81 mg twice daily and atorvastatin 80 mg. # Hypertensive Emergency # Hypertension Initial BP 202/100 and troponin of 0.081---> 0.310 Chest pain. Takes Carvedilol,valsartan, hydrochlorothiazide, and amlodipine at home. Goal of blood pressure in first 24 hours his systolic blood pressure in 150. -Clonidine given in ED, ordered labetalol 10 mg -Starting on home medications # Erythrocytosis Hemoglobin 17.9. Denies any symptoms of headache blurriness or any pruritus ?Continue to monitor. Possible phlebotomy if hemoglobin >18.5 # Diabetes. ?Starting on sliding scale # Hyperlipidemia ?Starting on atorvastatin. Code status: Full Diet: NPO Guerra: None Lines: PIV Supplemental O2: none Disposition: Tele I discussed this case with my senior Dr. Richter and my attending Dr. Coy de paz MD PGY1 Attending Provider Attestation/Addendum 64-year-old male patient with significant coronary artery disease risk factors including diabetes, uncontrolled hypertension, hyperlipidemia presents with chest with elevated troponin level patient was started on heparin for in the emergency room. He is awake and alert. His pain is better controlled. His blood pressure is stable. He is not hypoxic. I discussed with and supervised the resident physician who took care of this patient. I agree with the assessment and plan as above.
[2025-03-18 21:58] LABS: Troponin I 0.310 ng/mL (0.0-0.045)
[2025-03-18 22:50] LABS: Partial Thromboplastin Time 27.5 Seconds (22.0-36.0)
--- NOTE | 2025-03-18 22:54 | PC.NURSE ---
Addendum entered by Simone Aguilar RN 03/18/25 22:57: I need to correct my previous note. I stated Dr. Almodovar gave a verbal order to cancel amio medication order. The correct medication intended to make a note on to cancel was for hydrazaline. Original Note: Dr. Almodovar gave a verbal order to cancel the amio medication order.
[2025-03-18] MEDS: HEPARIN SOD INJ 5000 UNIT/ML VIAL 4000 UNIT IV (23:57)
[2025-03-18] MEDS: Heparin/D5w 25K 250 ML Ivpb 25,000 UNIT/250 ML BAG 9.961 UNIT IV (23:59)
[2025-03-19] VITALS (40 sets, daily range): BP systolic 122–174; BP diastolic 78–100; PULSE 57–84; RESP 14–97; TEMP 36.6–36.9; O2SAT 92–98; BMI 30.2
[2025-03-19] MEDS: MORPHINE SULF INJ 4 MG/ML VIAL 2 MG IVP (00:16)
[2025-03-19] MEDS: ACETAMINOPHEN 325 MG TABLET 650 MG PO (02:12)
[2025-03-19 05:43] LABS: Basophils # (Auto) 0.1 Thou/mm3 (0.0-0.2); Basophils % (Auto) 1 % (0-2.5); Eosinophils # (Auto) 0.0 Thou/mm3 (0.0-0.5); Eosinophils % (Auto) 0 % (0-10); Hematocrit 47.6 % (41.0-53.0); Hemoglobin 16.2 g/dL (13.5-16.0); Immature Granulocytes Auto 0.06 Thou/mm3 (0.00-0.00); Lymphocytes # (Auto) 1.7 Thou/mm3 (1.0-4.8); Lymphocytes % (Auto) 13 % (10-50); Mean Corpuscular HGB Conc 34.0 g/dl (31.0-37.0); Mean Corpuscular Hemoglobin 28.1 pg (25.0-35.0); Mean Corpuscular Volume 83 fL (80-100); Monocytes # (Auto) 0.7 Thou/mm3 (0.0-0.8); Monocytes % (Auto) 5 % (0-12); Neutrophils # (Auto) 10.8 Thou/mm3 (1.8-7.7); Neutrophils % (Auto) 81 % (37-80); Nucleated Red Blood Cell # 0.00 Thou/mm3 (0.00-0.00); Nucleated Red Blood Cell % 0 /100 WBC (0); Platelet Count 290 Thou/mm3 (140-440); RDW Standard Deviation 44.3 fL (35.1-43.9); Red Blood Count 5.77 Miln/mm3 (4.50-5.90); White Blood Count 13.3 Thou/mm3 (3.8-10.6)
[2025-03-19 06:25] LABS: Alanine Aminotransferase 29 U/L (10-49); Albumin, Serum 4.1 gm/dL (3.4-4.8); Albumin/Globulin Ratio 1.7 (1.2-2.2); Alkaline Phosphatase 81 U/L (46-116); Anion Gap 13 (7-16); Aspartate Amino Transferase 89 U/L (0-34); BUN/Creatinine Ratio 14 Ratio (12-20); Bilirubin,Total 0.8 mg/dL (0.3-1.2); Blood Urea Nitrogen 14 mg/dL (9-23); Calcium 9.1 mg/dL (8.3-10.6); Calcium (Corrected) 9.1 mg/dL (8.5-10.1); Carbon Dioxide 24.3 mMol/L (20.0-31.0); Cardiac Risk Estimate 3.4 RATIO (4.0-6.7); Chloride 104 mMol/L (98-107); Cholesterol 151 mg/dL (132-200); Creatinine (Component) 1.0 mg/dL (0.6-1.3); Estimated Creatinine Clearance 75.3 mL/min (>60); Globulin 2.4 gm/dL (2.3-3.5); Glucose 121 mg/dL (74-106); HDL Cholesterol 45 mg/dL (40-60); LDL Cholesterol,Calculated 96 mg/dL (0-130); Magnesium 1.9 mg/dL (1.6-2.6); Osmolality,Calculated 282 (275-295); Phosphorous 3.7 mg/dL (2.4-5.1); Potassium 2.9 mMol/L (3.4-5.1); Sodium 141 mMol/L (136-145); Thyroid Stimulating Hormone 0.93 uIU/mL (0.55-4.78); Total Protein 6.5 gm/dL (5.7-8.2); Triglycerides 50 mg/dL (30-150); eGFR > 60 See Note
[2025-03-19 06:31] LABS: Troponin I 9.969 ng/mL (0.0-0.045)
[2025-03-19 07:12] LABS: Glucose Estimated Average 137 mg/dL (80-131); Hemoglobin A1C 6.4 % Hgb (4.8-6.0)
[2025-03-19] MEDS: NITROGLYCERIN 0.4 MG SUBL BTL #25 SL (07:44)
[2025-03-19] MEDS: ASPIRIN EC 81 MG TABEC PO (07:45)
[2025-03-19] MEDS: VALSARTAN 80 MG TABLET 160 MG PO (07:46)
--- NOTE | 2025-03-19 07:49 | ECHO_ITS ---
Transthoracic Echo Report Ht (in): 66 Wt (lb): 187 Exam Location: Echo Lab Status: Inpatient Factory Manager: Carmelita Morgan Indications: Procedure Performed: BP: 168 / 93 HR: 71 Technical Quality: Technically difficult study MEASUREMENTS (Male / Female) Normal Values 2D ECHO LV Diastolic Diameter PLAX 5.0 cm 4.2 - 5.9 / 3.9 - 5.3 cm LV Systolic Diameter PLAX 3.2 cm IVS Diastolic Thickness 1.1 cm 0.6 - 1.0 / 0.6 - 0.9 cm LVPW Diastolic Thickness 1.2 cm 0.6 - 1.0 / 0.6 - 0.9 cm LV Relative Wall Thickness 0.5 LV Ejection Fraction MOD BP 63.2 % >= 55 % LV Cardiac Index MOD BP 1936.3 cm?/min?m? LV Ejection Fraction MOD 4C 67.6 % LV Cardiac Index MOD 4C 2574.6 cm?/min?m? LV Ejection Fraction 4C AL 68.3 % LV Cardiac Index 4C AL 2701.9 cm?/min?m? LV Ejection Fraction MOD 2C 49.6 % LV Cardiac Index MOD 2C 998.1 cm?/min?m? LV Ejection Fraction 2C AL 51.6 % LV Cardiac Index 2C AL 1073.3 cm?/min?m? DOPPLER AV Peak Velocity 128.0 cm/s AV Peak Gradient 6.6 mmHg AV Mean Gradient 3.0 mmHg AV Velocity Time Integral 27.7 cm AI Peak Velocity 223.0 cm/s AI Peak Gradient 19.9 mmHg AI Pressure Half Time 1585.0 ms LVOT Peak Velocity 83.5 cm/s LVOT Peak Gradient 2.8 mmHg LVOT Velocity Time Integral 20.9 cm MV Area PHT 3.2 cm? MR Peak Velocity 305.0 cm/s MR Peak Gradient 37.2 mmHg Mitral E Point Velocity 59.7 cm/s Mitral A Point Velocity 54.8 cm/s Mitral E to A Ratio 1.1 LV E' Lateral Velocity 8.4 cm/s Mitral E to LV E' Lateral Ratio 7.1 LV E' Septal Velocity 5.8 cm/s Mitral E to LV E' Septal Ratio 10.3 TR Peak Velocity 257.7 cm/s TR Peak Gradient 26.6 mmHg PV Peak Velocity 78.7 cm/s PV Peak Gradient 2.5 mmHg FINDINGS Left Ventricle Normal left ventricular size and systolic function with no obvious regional wall motion abnormalities. Mild LVH. Normal left ventricular diastolic filling pattern for age. The ejection fraction is visually estimated at 55- 60 %. Right Ventricle The right ventricle is normal in size and systolic function. Left Atrium The left atrium is normal by two-dimensional, color flow and Doppler imaging with no structural abnormalities, no thrombus formation present. Right Atrium The right atrium is normal by two-dimensional imaging, color flow and Doppler imaging with no structural abnormalities, no thrombus formation present. Atrial Septum The interatrial septum appears normal with no evidence of a shunt. Aorta The aorta is normal by two-dimensional, color flow and Doppler interrogation. Mitral Valve The mitral valve is normal by two-dimensional, color flow and Doppler interrogation. Mild mitral regurgitation. Aortic Valve The aortic valve is trileaflet and normal by two-dimensional, color flow and Doppler interrogation. Mild aortic valve regurgitation. Tricuspid Valve The tricuspid valve is normal by two-dimensional, color flow and Doppler interrogation. There is trace tricuspid valve regurgitation. Pulmonic Valve The pulmonic valve is not well visualized. There is no significant pulmonic valve regurgitation. Vessels Inferior vena cava not well visualized. Pericardium The pericardium is normal by two-dimensional imaging. There is no significant pericardial effusion. CONCLUSIONS Indication: ACS Normal LV size. Mild LVH. Normal LV diastolic filling pattern for age. Estimated EF at 55-60 %. The RV is normal in size and systolic function. mitral and trace tricuspid regurgitation Adelina Salcedo (Electronically Signed) Final Date: 19 March 2025 17:17
[2025-03-19 09:01] LABS: INR 1.0 (0.9-1.3); Partial Thromboplastin Time 36.8 Seconds (22.0-36.0); Prothrombin Time 10.9 Seconds (9.0-12.2)
[2025-03-19] MEDS: TICAGRELOR 90 MG TABLET 180 MG PO (09:08)
[2025-03-19] MEDS: POTASSIUM CHL 10 mEq IVPB 10 MEQ/100 ML BAG 100 MEQ IV ×4 (09:09→14:53)
[2025-03-19] MEDS: SODIUM CHLORIDE 0.45 % 500 ML 100 ML IV (11:00)
--- NOTE | 2025-03-19 13:11 | PC.SS ---
Update: Patient's troponin elevated. Patient to receive angiogram today. NPO. On room air. Dr. Moeller consulting.
--- NOTE | 2025-03-19 13:53 | ESPR_ITS ---
<Statement entered by uRss Louie MD - 03/19/25 17:12> I saw and examined patient personally and supervised PGY 1 resident, Dr. Bryan with formulating a management plan. I agree with the documentation with the exceptions as listed below. Patient's presented with chest pain radiated to his left arm. EKG showed ST depressions in lead II, III, V4 and V5. Troponin initially elevated at 0.081 and peaked at 9.96. Cardiology, Dr. Gaurang Moeller was consulted who emergently took patient to cardiac catheterization lab. 1 stent was placed in a branch of the LCx. The LCx itself is also occluded but will need to be done at another date with a Rotablator. Patient started on Brilinta 90 mg p.o. twice daily as per cardiology recommendations. Also continue with aspirin 81 mg p.o. daily. Once patient remains clinically stable, anticipate discharge within next 24 hours. Plan of care discussed with Attending Dr. Chivo Louie MD PGY 2 Disclaimer: This note was dictated by speech recognition. Minor errors in office communication professor may be present due to voice recognition software. Documentation for date of: 03/19/25 Subjective Subjective Interval history: No overnight events. Today, patient went to the [facility] and had a stent placed for his presentation of NSTEMI. Labs today significant for WBC 12.1 -> 13.3, Hgb 17.9 -> 16.2, APTT 27.5 -> 36.8, potassium 3.6 -> 2.9, HgbA1c 6.4, AST 25 -> 89, troponin 0.310 -> 9.969, and TSH 0.93. Per Cardiology, patient has been started on Brilinta for medical management of another coronary blockage that was not deemed to require stenting. He will also continue taking aspirin. Exam Vital Signs Temp Pulse Resp BP Pulse Ox O2 Del Method 98.5 F 71 15 146/85 H 95 Room Air 03/19/25 10:45 03/19/25 13:30 03/19/25 13:30 03/19/25 13:30 03/19/25 13:30 03/19/25 13:30 Narrative Exam GENERAL: NAD, AAOx3 HEENT: Moist mucosa. Eyes open, symmetrical, & clear CARDIO: Regular rhythm Noted. No Murmurs. PULM: No noted coughing/dyspnea CTA B/L, no R/W/R GI: Abdomen soft, nondistended, Non Tender SKIN/MSK/EXT: No wounds/rashes/amputations, no pain on palpation.No Edema. Pedal pulses present B/L NEURO: AAOx3, no focal neuro deficits, able to move all 4 extremities Objective Labs 03/19/25 04:18 03/19/25 04:18 Labs: Laboratory Results - last 24 hr 03/18/25 03/18/25 03/18/25 18:25 18:31 21:09 WBC 12.1 H RBC 6.20 H Hgb 17.9 H* Hct 51.1 MCV 82 MCH 28.9 MCHC 35.0 RDW Std Deviation 44.7 H Plt Count 335 Neut % (Auto) 65 Lymph % (Auto) 23 [place] % (Auto) 8 Eos % (Auto) 3 Baso % (Auto) 1 Neut # (Auto) 7.9 H Lymph # (Auto) 2.8 [place] # (Auto) 0.9 H Eos # (Auto) 0.4 Baso # (Auto) 0.1 Immature Gran # (Auto) 0.08 H Absolute Nucleated RBC 0.00 Immature Gran % 1 H Nucleated RBC % 0 PT INR APTT D-Dimer < 250 Sodium 140 Potassium 3.6 Chloride 103 Carbon Dioxide 25.5 Anion Gap 12 BUN 14 Creatinine 1.3 Estim Creat Clear Calc Not Performed. eGFR > 60 BUN/Creatinine Ratio 11 L Glucose [address] Glu mg/dL Hemoglobin A1c Calculated Osmolality 281 Calcium 9.9 Corrected Calcium 9.9 Phosphorus Magnesium Total Bilirubin 0.8 AST 25 ALT 29 Alkaline Phosphatase 89 Troponin I 0.081 H* 0.310 H* D B-Natriuretic Peptide 36 Total Protein 7.8 Albumin 4.9 H Globulin 2.9 Albumin/Globulin Ratio 1.7 Triglycerides Cholesterol LDL Cholesterol, Calc HDL Cholesterol Cholesterol/HDL Ratio TSH Ur Collection Type Clean Catch Urine Color Colorless A Urine Clarity Clear Urine pH 6.0 Ur Specific [place] 1.012 Urine Protein 1+ A Urine Glucose (UA) 4+ A Urine Ketones Negative Urine Blood 1+ A Urine Nitrite Negative Urine Bilirubin Negative Urine Urobilinogen (Auto) Negative Ur Leukocyte Esterase Negative Urine RBC 3 Urine WBC 1 Ur Squamous Epith Cells 0 Urine Bacteria None 03/18/25 03/19/25 03/19/25 22:14 04:18 08:30 WBC 13.3 H RBC 5.77 Hgb 16.2 H Hct 47.6 MCV 83 MCH 28.1 MCHC 34.0 RDW Std Deviation 44.3 H Plt Count 290 D Neut % (Auto) 81 H Lymph % (Auto) 13 [place] % (Auto) 5 Eos % (Auto) 0 Baso % (Auto) 1 Neut # (Auto) 10.8 H Lymph # (Auto) 1.7 [place] # (Auto) 0.7 Eos # (Auto) 0.0 Baso # (Auto) 0.1 Immature Gran # (Auto) 0.06 H Absolute Nucleated RBC 0.00 Immature Gran % 1 H Nucleated RBC % 0 PT 10.9 INR 1.0 APTT 27.5 36.8 H D-Dimer Sodium 141 Potassium 2.9 L D Chloride 104 Carbon Dioxide 24.3 Anion Gap 13 BUN 14 Creatinine 1.0 Estim Creat Clear Calc 75.3 eGFR > 60 BUN/Creatinine Ratio [address] Glu mg/dL 137 H Hemoglobin A1c 6.4 H Calculated Osmolality 282 Calcium 9.1 Corrected Calcium 9.1 Phosphorus 3.7 Magnesium 1.9 Total Bilirubin 0.8 AST 89 H ALT 29 Alkaline Phosphatase 81 Troponin I 9.969 H* D B-Natriuretic Peptide Total Protein 6.5 Albumin 4.1 D Globulin 2.4 Albumin/Globulin Ratio 1.7 Triglycerides 50 Cholesterol 151 LDL Cholesterol, Calc 96 HDL Cholesterol 45 Cholesterol/HDL Ratio 3.4 L TSH 0.93 Ur Collection Type Urine Color Urine Clarity Urine pH Ur Specific [place] Urine Protein Urine Glucose (UA) Urine Ketones Urine Blood Urine Nitrite Urine Bilirubin Urine Urobilinogen (Auto) Ur Leukocyte Esterase Urine RBC Urine WBC Ur Squamous Epith Cells Urine Bacteria Quality Measures Quality Measures none Advance care planning discussed with:: patient Assessment & Plan Assessment Current Active Medications: Generic Name Dose Route Start Last Admin Trade Name Freq PRN Reason Stop Dose Admin Acetaminophen 650 mg 03/18/25 21:44 Acetaminophen 325 Mg Tablet PO 04/17/25 21:43 Q6H PRN Fever >100.4 Acetaminophen 650 mg 03/18/25 21:44 03/19/25 02:12 Acetaminophen 325 Mg Tablet PO 04/17/25 21:43 650 mg Q6H PRN Administration PAIN SCALE 1-3 (mild Amlodipine Besylate 10 mg 03/19/25 09:00 03/19/25 07:45 Amlodipine Besylate 5 Mg Tablet PO 04/18/25 08:59 10 mg QDAY MERCEDEZ Administration Aspirin 81 mg 03/19/25 09:00 03/19/25 07:45 Aspirin Ec 81 Mg Tabec PO 04/18/25 08:59 81 mg QDAY MERCEDEZ Administration Atorvastatin Calcium 80 mg 03/19/25 21:00 Atorvastatin Calcium 20 Mg Tablet PO 04/18/25 20:59 HS [facility] Carvedilol 25 mg 03/19/25 08:00 03/19/25 07:44 Carvedilol 12.5 Mg Tablet PO 04/18/25 07:59 25 mg BIDWM MERCEDEZ Administration Dextrose 25 ml 03/19/25 05:55 Dextrose 50%-Water Inj 50 Ml Syringe IV 04/18/25 05:54 Q15MIN PRN BG 50-70 responsive npo pt Dextrose 50 ml 03/19/25 05:55 Dextrose 50%-Water Inj 50 Ml Syringe IV 04/18/25 05:54 Q15MIN PRN BG <50 OR BG <70 & pt unresponsive Glucagon 1 mg 03/19/25 05:55 Glucagon Inj 1 Mg Vial IM Q15MIN PRN BG <70, and no IV access Sodium Chloride 500 mls @ 100 mls/hr 03/19/25 10:35 03/19/25 11:00 Ns 0.45% IV 03/19/25 15:34 100 mls/hr .Q5H ONE Administration Insulin Human Lispro 0 unit 03/19/25 06:00 03/19/25 06:08 Insulin Lispro (Admelog) 1 Unit/0.01 Ml Unit SC 04/18/25 05:59 Not Given Q6HR [facility] Protocol Labetalol HCl 10 mg 03/18/25 22:29 Labetalol Inj 5 Mg/Ml Vial 20 Ml IVP 04/17/25 22:28 PRN PRN SBP>180 Morphine Sulfate 2 mg 03/18/25 21:53 03/19/25 00:16 Morphine Sulf Inj 4 Mg/Ml Vial IVP 2 mg Q4HR PRN Administration PAIN SCALE 7-10 (Severe Nitroglycerin 0.4 mg 03/18/25 20:45 03/19/25 07:44 Nitroglycerin 0.4 Mg Subl Btl #25 SL 0.4 mg Q5MIN PRN Administration CHEST PAIN Ondansetron HCl 4 mg 03/18/25 21:44 Ondansetron Inj 2 Mg/Ml Inj 2 Ml IVP 04/17/25 21:43 Q6H PRN NAUSEA OR VOMITING Protocol Sennosides 1 tab 03/18/25 21:44 Senna Tablet PO 04/17/25 21:43 QDAY PRN constipation Protocol Ticagrelor 90 mg 03/19/25 21:00 Ticagrelor 90 Mg Tablet PO 04/18/25 20:59 BID MERCEDEZ Valsartan 160 mg 03/19/25 09:00 03/19/25 07:46 Valsartan 80 Mg Tablet PO 04/18/25 08:59 160 mg QDAY MERCEDEZ Administration Plan This is a 64-year-old male with past medical history of hypertension, diabetes, hyperlipidemia presented to the ED with complaints of squeezing type of chest pain since 03/18 morning radiating to left arm. He was admitted for NSTEMI. # NSTEMI, acute coronary syndrome resolved # CAD, s/p 03/19 coronary stenting Squeezing, central chest pain radiating to the left arm that is not relieved on rest. History of hypertension, diabetes, hyperlipidemia. Initial blood pressure readings are 202/100. Troponin trend = 0.081 -> 0.310 -> 9.969 (stopped trending after coronary stenting) EKG showing ST segment depression in lead I, 2, V2, V4, V5 Loading dose of aspirin given, nitroglycerin in ED s/p 03/19 coronary stenting (stent placed x 1) Rx: -Started PO Brilinta 90 mg BID (s/p PO Brilinta 180 mg x 1) -Discontinued heparin drip -Continue aspirin 81 mg qD and atorvastatin 80 mg qHS # Hypertensive Emergency # Hypertension Initial BP 202/100 and troponin trend = 0.081 -> 0.310 -> 9.969 Chest pain. Takes Carvedilol, valsartan, hydrochlorothiazide, and amlodipine at home. Goal of blood pressure in first 24 hours his systolic blood pressure in 150. s/p PO clonidine 0.2 mg x 1 and IV hydralazine 10 mg x 1 in ED Rx: -PO amlodipine 10 mg qD -PO Coreg 25 mg BIDWM -IV labetalol 10 mg prn # Erythrocytosis (improving) Hemoglobin 17.9. Denies any symptoms of headache blurriness or any pruritus 03/19 Hgb 16.2 Rx: ?Continue to monitor. Possible phlebotomy if hemoglobin >18.5 # Diabetes -Insulin sliding scale # Hyperlipidemia ?Continue atorvastatin Code status: Full Diet: Carbohydrate Consistent Low Guerra: None Lines: PIV Supplemental O2: none Disposition: Tele I discussed this case with my senior Dr. Louie and my attending Dr. Chivo Bryan DO Internal Medicine, PGY-1 Attending Provider Attestation/Addendum I have discussed and was present for the essential components of the history, physical examination, diagnosis, and treatment plan with the resident. I agree with the patient's care as documented by the resident and amended herein by me. Von Waldron DO. Although this document has been carefully reviewed, there may still be some phonetic and other typographical errors. These errors are purely grammatical due to imperfections in the software program and should not be construed in any way to compromise the substance of the patient's medical care during this visit
--- NOTE | 2025-03-19 14:49 | ESCONSULT_ITS ---
<Statement entered by Katlin Moeller MD - 03/22/25 14:37> I personally examined the patient evaluated with resident physician PGY 2 Dr. Kailash Henson patient is came to the hospital severe chest pain found to have acute myocardial infarction NSTEMI underwent coronary angiogram emergently and PCI of the large ramus intermedius is performed patient also has severe stenosis circumflex artery which will be addressed later. Evaluated patient with resident physician treatment plan recommendation discussed agree with treatment plan recommendation with antiplatelet therapy DAPT aspirin and Plavix and guideline directed medical management statin therapy and beta-blockers as tolerated. HPI Data of Consult Requesting Physician: Ronan Cespedes MD Admitting Provider: Ronan Cespedes MD Attending Provider: Ronan Cespedes MD Primary Care Provider: Tru Zamora Consult Narrative History of present illness: Ahmet Huizar is a 64-year-old male with a past medical history of hypertension, type 2 diabetes mellitus, hyperlipidemia who presented with chest discomfort. Describes his symptoms as substernal and left-sided radiated to his left arm chest tightness. Symptoms were not relieved by rest and sudden onset in nature. In the ED, initial vitals showed BP of 202/100 but other vital signs are stable as he was saturating well on room air. Initial troponins were 0.08 and eventually increased to 9.9. EKG did not show any T wave inversions but ST depressions were seen in leads V3, V4, and V5 with elevations in aVR. He was given loading dose aspirin, nitroglycerin, and started on heparin drip for ACS and clonidine for hypertensive crisis. Cardiology consulted for ACS/NSTEMI. PMHx: Hypertension, hyperlipidemia, type 2 diabetes mellitus Medications: Carvedilol, valsartan, HCTZ, amlodipine, atorvastatin, metformin FHx: Hypertension in mother SHx: Denies smoking, alcohol consumption, illicit drug use cc:: cc: Ronan Cespedes MD Review of Systems Review of Systems Systems Reviewed: All systems reviewed, normal except as documented Exam Vital Signs Temp Pulse Resp BP Pulse Ox O2 Del Method 98.5 F 67 14 146/87 H 94 L Room Air 03/19/25 10:45 03/19/25 13:45 03/19/25 13:45 03/19/25 13:45 03/19/25 13:45 03/19/25 13:45 Narrative Exam General: AOx3, no acute distress, able to speak full sentences HEENT: NC/AT, mucous membranes moist, bilateral sclera anicteric Cardiovascular: regular rate and rhythm, S1/S2 present, no murmurs appreciated Pulmonary: clear to auscultation bilaterally, no rales/rhonchi/wheezes Abdominal: soft, non-tender, non-distended, no rebound/guarding, normal bowel sounds present Musculoskeletal: normal ROM, no peripheral edema Skin: warm and dry, intact, no rashes Neuro: CN II-XII intact, no focal deficits Results Labs 03/20/25 04:19 03/20/25 04:19 Labs: Short CBC 03/18/25 03/19/25 Range/Units 18:25 04:18 WBC 12.1 H 13.3 H (3.8-10.6) Thou/mm3 Hgb 17.9 H* 16.2 H (13.5-16.0) g/dL Hct 51.1 47.6 (41.0-53.0) % Plt Count 335 290 D (140-440) Thou/mm3 BMP 03/18/25 03/19/25 18:25 04:18 Sodium 140 141 Potassium 3.6 2.9 L D Chloride 103 104 Carbon Dioxide 25.5 24.3 BUN 14 14 Creatinine 1.3 1.0 Glucose 134 H 121 H Calcium 9.9 9.1 Cardiac Enzymes 03/18/25 03/18/25 03/19/25 Range/Units 18:25 21:09 04:18 Troponin I 0.081 H* 0.310 H* D 9.969 H* D (0.0-0.045) ng/mL Liver Function 03/18/25 03/19/25 Range/Units 18:25 04:18 Total Bilirubin 0.8 0.8 (0.3-1.2) mg/dL AST 25 89 H (0-34) U/L ALT 29 29 (10-49) U/L Alkaline Phosphatase 89 81 (46-116) U/L Albumin 4.9 H 4.1 D (3.4-4.8) gm/dL Urine 03/18/25 Range/Units 18:31 Urine Color Colorless A (Lt Yel-Yel) Urine Clarity Clear (Clear/Hazy) Urine pH 6.0 (5.0-7.0) Ur Specific [place] 1.012 (1.001-1.035) Urine Protein 1+ A (Neg - Trace) Urine Glucose (UA) 4+ A (Negative) Quality Measures Quality Measures none Advance care planning discussed with:: patient Medications Home Medications and Allergies Home Medications ?Medication ?Instructions ?Recorded ?Confirmed ?Type amlodipine 10 mg tablet (Norvasc) 10 mg PO QDAY #0 tab s 05/21/16 03/19/25 History valsartan 160 mg tablet (Diovan) 160 mg PO QDAY 03/19/25 History empagliflozin 12.5 mg-metformin ER 1 tab PO BID 03/19/25 History 1,000 mg tablet,extended rel 24 hr (Synjardy XR) ergocalciferol (vitamin D2) 1,250 1,250 mcg PO QWEEK 1 03/19/25 History mcg (50,000 unit) capsule fexofenadine 180 mg tablet 180 mg PO .QD 03/19/2502/28 History multivitamin 1 tab PO .QD 03/19/25 History Allergies Allergy/AdvReac Type Severity Reaction Status Date / Time No Known Allergies Allergy Verified 03/18/25 17:32 Visit Medications Acetaminophen (Acetaminophen 325 Mg Tablet) 650 mg PO Q6H PRN PRN Reason: Fever >100.4 Stop: 04/17/25 21:43 Acetaminophen (Acetaminophen 325 Mg Tablet) 650 mg PO Q6H PRN PRN Reason: PAIN SCALE 1-3 (mild Stop: 04/17/25 21:43 Last Admin: 03/19/25 02:12 Dose: 650 mg Amlodipine Besylate (Amlodipine Besylate 5 Mg Tablet) 10 mg PO QDAY [facility] Stop: 04/18/25 08:59 Last Admin: 03/19/25 07:45 Dose: 10 mg Aspirin (Aspirin Ec 81 Mg Tabec) 81 mg PO QDAY [facility] Stop: 04/18/25 08:59 Last Admin: 03/19/25 07:45 Dose: 81 mg Atorvastatin Calcium (Atorvastatin Calcium 20 Mg Tablet) 80 mg PO HS [facility] Stop: 04/18/25 20:59 Carvedilol (Carvedilol 12.5 Mg Tablet) 25 mg PO BIDWM [facility] Stop: 04/18/25 07:59 Last Admin: 03/19/25 07:44 Dose: 25 mg Dextrose (Dextrose 50%-Water Inj 50 Ml Syringe) 25 ml IV Q15MIN PRN PRN Reason: BG 50-70 responsive npo pt Stop: 04/18/25 05:54 Dextrose (Dextrose 50%-Water Inj 50 Ml Syringe) 50 ml IV Q15MIN PRN PRN Reason: BG <50 OR BG <70 & pt unresponsive Stop: 04/18/25 05:54 Glucagon (Glucagon Inj 1 Mg Vial) 1 mg IM Q15MIN PRN PRN Reason: BG <70, and no IV access Sodium Chloride (Ns 0.45%) 500 mls @ 100 mls/hr IV .Q5H ONE Stop: 03/19/25 15:34 Last Admin: 03/19/25 11:00 Dose: 100 mls/hr Insulin Human Lispro (Insulin Lispro (Admelog) 1 Unit/0.01 Ml Unit) 0 unit SC Q6HR [facility]; Protocol Stop: 04/18/25 05:59 Last Admin: 03/19/25 12:00 Dose: Not Given Labetalol HCl (Labetalol Inj 5 Mg/Ml Vial 20 Ml) 10 mg IVP PRN PRN PRN Reason: SBP>180 Stop: 04/17/25 22:28 Morphine Sulfate (Morphine Sulf Inj 4 Mg/Ml Vial) 2 mg IVP Q4HR PRN PRN Reason: PAIN SCALE 7-10 (Severe Last Admin: 03/19/25 00:16 Dose: 2 mg Nitroglycerin (Nitroglycerin 0.4 Mg Subl Btl #25) 0.4 mg SL Q5MIN PRN PRN Reason: CHEST PAIN Last Admin: 03/19/25 07:44 Dose: 0.4 mg Ondansetron HCl (Ondansetron Inj 2 Mg/Ml Inj 2 Ml) 4 mg IVP Q6H PRN; Protocol PRN Reason: NAUSEA OR VOMITING Stop: 04/17/25 21:43 Sennosides (Senna Tablet) 1 tab PO QDAY PRN; Protocol PRN Reason: constipation Stop: 04/17/25 21:43 Ticagrelor (Ticagrelor 90 Mg Tablet) 90 mg PO BID [facility] Stop: 04/18/25 20:59 Valsartan (Valsartan 80 Mg Tablet) 160 mg PO QDAY [facility] Stop: 04/18/25 08:59 Last Admin: 03/19/25 07:46 Dose: 160 mg Discontinued Medications Aspirin (Aspirin 81 Mg Chew) 324 mg PO X1 ONE Stop: 03/18/25 20:46 Last Admin: 03/18/25 21:05 Dose: 324 mg Aspirin (Aspirin Ec 81 Mg Tabec) 81 mg PO X1 ONE Stop: 03/18/25 21:51 Last Admin: 03/18/25 23:49 Dose: Not Given Clonidine (Clonidine Hcl 0.1 Mg Tablet) 0.2 mg PO X1 ONE Stop: 03/18/25 17:58 Last Admin: 03/18/25 21:01 Dose: 0.2 mg Heparin Sodium (Porcine) (Heparin Sod Inj 5000 Unit/Ml Vial) 4,000 unit IV X1 ONE; Protocol Stop: 03/18/25 20:56 Last Admin: 03/18/25 23:57 Dose: 4,000 unit Hydralazine HCl (Hydralazine Inj 20 Mg/Ml Vial) 10 mg IVP X1 ONE Stop: 03/18/25 21:00 Last Admin: 03/18/25 22:53 Dose: Not Given Hydrochlorothiazide (Hydrochlorothiazide 12.5 Mg Capsule) 25 mg PO QDAY [facility] Stop: 04/18/25 08:59 Heparin Sodium/Dextrose (Heparin In D5w Ivpb) 25,000 unit in 250 mls @ 9.961 mls/hr IV .Q24H [facility]; Protocol Stop: 04/01/25 20:59 Last Admin: 03/18/25 23:59 Dose: 12 units/kg/hr, 9.961 mls/hr Potassium Chloride (Kcl Ivpb) 10 meq in 100 mls @ 100 mls/hr IV Q1H [facility] Stop: 03/19/25 12:46 Last Admin: 03/19/25 12:11 Dose: 100 mls/hr Losartan Potassium (Losartan Potassium 25 Mg Tablet) 100 mg PO QDAY [facility] Stop: 04/18/25 08:59 Potassium Chloride (Potassium Chloride 20 Meq Tabcr) 40 meq PO X1 ONE Stop: 03/19/25 09:06 Last Admin: 03/19/25 09:13 Dose: 40 meq Ticagrelor (Ticagrelor 90 Mg Tablet) 180 mg PO X1 ONE Stop: 03/19/25 09:07 Last Admin: 03/19/25 09:08 Dose: 180 mg Assessment & Plan Plan Ahmet Huizar is a 64-year-old male with a past medical history of hypertension, type 2 diabetes mellitus, hyperlipidemia who is admitted and cardiology consulted for ACS/NSTEMI. #Acute coronary syndrome #NSTEMI #CAD status post stent Presented with cardiac chest pain. Troponins peaked at 9.[address] depressions in V3, V4, and V5 with ST elevations in aVR. A1c 6.4%. LDL 96, HDL 45, TGL 50. Echo: EF 55 to 60%, normal LV size and function without evidence of regional wall motion abnormalities. Trace TR. Cardiac cath: culprit lesion found to be branch off of LCx with subtotal occlusion that was successfully stented; LCx itself also has significant disease but unable to place stent and will need outpatient workup and possible rotablation; PDA also has disease but can be managed medically. ? Aspirin 81 mg daily ? Brilinta 90 mg twice daily ? Atorvastatin 80 mg ? Carvedilol 25 mg twice daily ? If stable overnight can be discharged from cardiology standpoint with follow- up in 1 to 2 weeks ? As stated above, will need further workup outpatient for lesion seen in LCx #Hypertension #Hypertensive crisis #Type 2 diabetes mellitus ? Continue management per primary team ----- Plan discussed with attending physician Dr. Sajan Henson MD PGY-2 Internal Medicine
[2025-03-19] MEDS: INSULIN LISPRO (AdmeLOG) 1 UNIT/0.01 ML UNIT SC (17:29)
[2025-03-19] MEDS: TICAGRELOR 90 MG TABLET PO (20:09)
[2025-03-19] MEDS: ATORVASTATIN CALCIUM 20 MG TABLET 80 MG PO (20:09)
[2025-03-20] VITALS (12 sets, daily range): BP systolic 126–160; BP diastolic 66–88; PULSE 57–77; RESP 12–97; TEMP 36.6–37.1; O2SAT 97–98; BMI 30.2
[2025-03-20 05:46] LABS: Basophils # (Auto) 0.1 Thou/mm3 (0.0-0.2); Basophils % (Auto) 1 % (0-2.5); Eosinophils # (Auto) 0.2 Thou/mm3 (0.0-0.5); Eosinophils % (Auto) 2 % (0-10); Hematocrit 46.3 % (41.0-53.0); Hemoglobin 15.8 g/dL (13.5-16.0); Immature Granulocytes Auto 0.08 Thou/mm3 (0.00-0.00); Lymphocytes # (Auto) 2.4 Thou/mm3 (1.0-4.8); Lymphocytes % (Auto) 19 % (10-50); Mean Corpuscular HGB Conc 34.1 g/dl (31.0-37.0); Mean Corpuscular Hemoglobin 28.4 pg (25.0-35.0); Mean Corpuscular Volume 83 fL (80-100); Monocytes # (Auto) 1.2 Thou/mm3 (0.0-0.8); Monocytes % (Auto) 10 % (0-12); Neutrophils # (Auto) 8.5 Thou/mm3 (1.8-7.7); Neutrophils % (Auto) 69 % (37-80); Nucleated Red Blood Cell # 0.00 Thou/mm3 (0.00-0.00); Nucleated Red Blood Cell % 0 /100 WBC (0); Platelet Count 279 Thou/mm3 (140-440); RDW Standard Deviation 46.1 fL (35.1-43.9); Red Blood Count 5.57 Miln/mm3 (4.50-5.90); White Blood Count 12.4 Thou/mm3 (3.8-10.6)
[2025-03-20 06:10] LABS: INR 1.0 (0.9-1.3); Partial Thromboplastin Time 27.3 Seconds (22.0-36.0); Prothrombin Time 10.8 Seconds (9.0-12.2)
[2025-03-20 06:11] LABS: Alanine Aminotransferase 36 U/L (10-49); Albumin, Serum 3.9 gm/dL (3.4-4.8); Albumin/Globulin Ratio 1.9 (1.2-2.2); Alkaline Phosphatase 87 U/L (46-116); Anion Gap 9 (7-16); Aspartate Amino Transferase 151 U/L (0-34); BUN/Creatinine Ratio 16 Ratio (12-20); Bilirubin,Total 1.0 mg/dL (0.3-1.2); Blood Urea Nitrogen 19 mg/dL (9-23); Calcium 8.7 mg/dL (8.3-10.6); Calcium (Corrected) 8.8 mg/dL (8.5-10.1); Carbon Dioxide 23.6 mMol/L (20.0-31.0); Chloride 107 mMol/L (98-107); Creatinine (Component) 1.2 mg/dL (0.6-1.3); Estimated Creatinine Clearance 62.8 mL/min (>60); Globulin 2.1 gm/dL (2.3-3.5); Glucose 117 mg/dL (74-106); Magnesium 2.2 mg/dL (1.6-2.6); Osmolality,Calculated 282 (275-295); Phosphorous 2.0 mg/dL (2.4-5.1); Potassium 3.8 mMol/L (3.4-5.1); Sodium 140 mMol/L (136-145); Total Protein 6.0 gm/dL (5.7-8.2); eGFR > 60 See Note
[2025-03-20] MEDS: VALSARTAN 80 MG TABLET 160 MG PO (08:21)
[2025-03-20] MEDS: NAPH,KPH MBDB 1 PACKET (1.5 GM) PO (08:21)
[2025-03-20] MEDS: ASPIRIN EC 81 MG TABEC PO (08:22)
[2025-03-20] MEDS: TICAGRELOR 90 MG TABLET PO (08:22)
[2025-03-20 09:12] LABS: ACT (CATH LAB ONLY) 346.0 Seconds (89-169)
--- NOTE | 2025-03-20 12:22 | ESPR_ITS ---
<Statement entered by Katlin Moeller MD - 03/22/25 14:38> I personally examined evaluated this patient who presented to the hospital acute myocardial infarction underwent PCI stent placement successfully doing much better now patient can be discharged home on dual antiplatelet therapy will monitor the patient closely patient did have a ramus intermedius PCI circumflex artery had calcified 95% lesion could not cross the lesion with balloon catheter hence may require PCI stent placement at a later date if he continues to have angina following discharge will probably require rotational atherectomy. Documentation for date of: 03/20/25 Subjective Subjective Interval history: No acute overnight events. Seen and examined at bedside and patient resting comfortably in bed. Denies any chest discomfort, shortness of breath, palpitations. Vital signs stable, labs generally unremarkable other than hypophosphatemia and mild elevation in AST. Can be discharged from cardiology perspective with aspirin, Brilinta, and atorvastatin. Exam Vital Signs Temp Pulse Resp BP Pulse Ox O2 Del Method 98.8 F 61 20 146/88 H 98 Room Air 03/20/25 11:51 03/20/25 11:51 03/20/25 11:51 03/20/25 11:51 03/20/25 11:51 03/20/25 11:51 Narrative Exam General: AOx3, no acute distress, able to speak full sentences HEENT: NC/AT, mucous membranes moist, bilateral sclera anicteric Cardiovascular: regular rate and rhythm, S1/S2 present, no murmurs appreciated Pulmonary: clear to auscultation bilaterally, no rales/rhonchi/wheezes Abdominal: soft, non-tender, non-distended, no rebound/guarding, normal bowel sounds present Musculoskeletal: normal ROM, no peripheral edema Skin: warm and dry, intact, no rashes Neuro: CN II-XII intact, no focal deficits Objective Labs 03/20/25 04:19 03/20/25 04:19 Labs: Laboratory Results - last 24 hr 03/19/25 03/20/25 10:08 04:19 WBC 12.4 H RBC 5.57 Hgb 15.8 Hct 46.3 MCV 83 MCH 28.4 MCHC 34.1 RDW Std Deviation 46.1 H Plt Count 279 Neut % (Auto) 69 Lymph % (Auto) 19 [place] % (Auto) 10 Eos % (Auto) 2 Baso % (Auto) 1 Neut # (Auto) 8.5 H Lymph # (Auto) 2.4 [place] # (Auto) 1.2 H Eos # (Auto) 0.2 Baso # (Auto) 0.1 Immature Gran # (Auto) 0.08 H Absolute Nucleated RBC 0.00 Immature Gran % 1 H Nucleated RBC % 0 PT 10.8 INR 1.0 APTT 27.3 Activated Clotting Time 346.0 H Sodium 140 Potassium 3.8 D Chloride 107 Carbon Dioxide 23.6 Anion Gap 9 BUN 19 Creatinine 1.2 Estim Creat Clear Calc 62.8 eGFR > 60 BUN/Creatinine Ratio 16 Glucose 117 H Calculated Osmolality 282 Calcium 8.7 Corrected Calcium 8.8 Phosphorus 2.0 L Magnesium 2.2 Total Bilirubin 1.0 AST 151 H ALT 36 Alkaline Phosphatase 87 Total Protein 6.0 Albumin 3.9 Globulin 2.1 L Albumin/Globulin Ratio 1.9 Quality Measures Quality Measures none Advance care planning discussed with:: patient Assessment & Plan Assessment Current Active Medications: Generic Name Dose Route Start Last Admin Trade Name Freq PRN Reason Stop Dose Admin Acetaminophen 650 mg 03/18/25 21:44 Acetaminophen 325 Mg Tablet PO 04/17/25 21:43 Q6H PRN Fever >100.4 Acetaminophen 650 mg 03/18/25 21:44 03/19/25 02:12 Acetaminophen 325 Mg Tablet PO 04/17/25 21:43 650 mg Q6H PRN Administration PAIN SCALE 1-3 (mild Amlodipine Besylate 10 mg 03/19/25 09:00 03/20/25 08:22 Amlodipine Besylate 5 Mg Tablet PO 04/18/25 08:59 10 mg QDAY [facility] Administration Aspirin 81 mg 03/19/25 09:00 03/20/25 08:22 Aspirin Ec 81 Mg Tabec PO 04/18/25 08:59 81 mg QDAY [facility] Administration Atorvastatin Calcium 80 mg 03/19/25 21:00 03/19/25 20:09 Atorvastatin Calcium 20 Mg Tablet PO 04/18/25 20:59 80 mg HS [facility] Administration Carvedilol 25 mg 03/19/25 08:00 03/20/25 08:22 Carvedilol 12.5 Mg Tablet PO 04/18/25 07:59 25 mg BIDWM [facility] Administration Dextrose 25 ml 03/19/25 05:55 Dextrose 50%-Water Inj 50 Ml Syringe IV 04/18/25 05:54 Q15MIN PRN BG 50-70 responsive npo pt Dextrose 50 ml 03/19/25 05:55 Dextrose 50%-Water Inj 50 Ml Syringe IV 04/18/25 05:54 Q15MIN PRN BG <50 OR BG <70 & pt unresponsive Glucagon 1 mg 03/19/25 05:55 Glucagon Inj 1 Mg Vial IM Q15MIN PRN BG <70, and no IV access Insulin Human Lispro 0 unit 03/19/25 06:00 03/20/25 11:55 Insulin Lispro (Admelog) 1 Unit/0.01 Ml Unit SC 04/18/25 05:59 Not Given Q6HR [facility] Protocol Labetalol HCl 10 mg 03/18/25 22:29 Labetalol Inj 5 Mg/Ml Vial 20 Ml IVP 04/17/25 22:28 PRN PRN SBP>180 Morphine Sulfate 2 mg 03/18/25 21:53 03/19/25 00:16 Morphine Sulf Inj 4 Mg/Ml Vial IVP 2 mg Q4HR PRN Administration PAIN SCALE 7-10 (Severe Nitroglycerin 0.4 mg 03/18/25 20:45 03/19/25 07:44 Nitroglycerin 0.4 Mg Subl Btl #25 SL 0.4 mg Q5MIN PRN Administration CHEST PAIN Ondansetron HCl 4 mg 03/18/25 21:44 Ondansetron Inj 2 Mg/Ml Inj 2 Ml IVP 04/17/25 21:43 Q6H PRN NAUSEA OR VOMITING Protocol Sennosides 1 tab 03/18/25 21:44 Senna Tablet PO 04/17/25 21:43 QDAY PRN constipation Protocol Ticagrelor 90 mg 03/19/25 21:00 03/20/25 08:22 Ticagrelor 90 Mg Tablet PO 04/18/25 20:59 90 mg BID [facility] Administration Valsartan 160 mg 03/19/25 09:00 03/20/25 08:21 Valsartan 80 Mg Tablet PO 04/18/25 08:59 160 mg QDAY [facility] Administration Plan Ahmet Huizar is a 64-year-old male with a past medical history of hypertension, type 2 diabetes mellitus, hyperlipidemia who is admitted and cardiology consulted for ACS/NSTEMI. #Acute coronary syndrome #NSTEMI #CAD status post stent Presented with cardiac chest pain. Troponins peaked at 9.[address] depressions in V3, V4, and V5 with ST elevations in aVR. A1c 6.4%. LDL 96, HDL 45, TGL 50. Echo: EF 55 to 60%, normal LV size and function without evidence of regional wall motion abnormalities. Trace TR. Cardiac cath: culprit lesion found to be branch off of LCx with subtotal occlusion that was successfully stented; LCx itself also has significant disease but unable to place stent and will need outpatient workup and possible rotablation; PDA also has disease but can be managed medically. ? Aspirin 81 mg daily ? Brilinta 90 mg twice daily ? Atorvastatin 80 mg ? Carvedilol 25 mg twice daily ? Can be discharged from cardiology standpoint with follow-up in 1 to 2 weeks ? As stated above, will need further workup outpatient for lesion seen in LCx #Hypertension #Hypertensive crisis #Type 2 diabetes mellitus ? Continue management per primary team ----- Plan discussed with attending physician Dr. Sajan Henson MD PGY-2 Internal Medicine
--- NOTE | 2025-03-20 13:19 | PC.SS ---
[facility] conducted bedside contact with the patient conduct initial assessment and to discuss discharge planning.? Patient confirmed demographic information.? Patient resides at home with spouse, Allie Huizar .? Patient is employed part-time.? Patient does not utilize any form of DME to assist with ambulation.? Patient does not utilize home oxygen.? Patient describes the ability to complete ADL?s independently.? Patient identified spouse, Allie Huizar; as medical surrogate decision maker.? Patient?s PCP is [facility].? Patient does not participate with dialysis.? Patient does not possess any specialty providers.? Patient possesses history of diabetes.? Patient utilizes [facility] for medication services.? Plan is for the patient to return home at the time of discharge.? Family will provide transportation on behalf of the patient.? No further discharge needs identified by the patient.? No further intervention required at this time, social media developer will be available to address any further concerns.? Next of Kin: Allie Huizar D/C Plan: Home
--- NOTE | 2025-03-20 14:46 | ESDS_ITS ---
<Statement entered by Russ Louie MD - 03/20/25 16:10> I saw and examined patient personally and supervised PGY 1 resident, Dr. Bryan With formulating a management plan. I agree with the documentation with the exceptions as listed below. Patient presented with chest pain and had ST depressions in V2 3 V4 and V5 on EKG. Troponin initially elevated at 0.081 and peaked at 9.9. He was taken to the cardiac catheterization lab by dispatch officer Dr. Gaurang Moeller who placed a stent in one of the branches of the LCx. He has other blockages in the LCx, but this will need Rotablator as outpatient. He was started on ticagrelor 90 mg p.o. twice daily along with aspirin as per cardiology recommendations. All patient's labs are now returning to his baseline and patient is currently clinically stable for discharge to home. Recommend cardiology follow-up in 1 week. Plan of care discussed with Attending Dr. Chivo Louie MD PGY 2 Disclaimer: This note was dictated by speech recognition. Minor errors in ruby on rails web developer may be present due to voice recognition software. Planned Discharge Date 03/20/25 DS: Providers Provider Date of admission: 03/18/25 21:44 Primary care physician: Tru Zamora Admitting Provider: Ronan Cespedes MD Attending Provider on Admission: Justice Waldron DO Consults: 03/19/25 07:06 Consult to Cardiology Routine Comment: NSTEMI Consulting Provider: Katlin Moeller Attending Provider on DC: Von Waldron DO Discharging Provider: Matt Bryan DO DS: Diagnosis Problem List Completed Was Problem List Reviewed/Reconciled?: Yes Hospital Course Hospital Course Hospital course: Summary: 64-year-old male patient with significant coronary artery disease risk factors including diabetes, uncontrolled hypertension, and hyperlipidemia presents on 03/18 with chest pain and elevated troponin level which patient was started on heparin for in the emergency room. ER: ED visit initial vitals of blood pressure 202/100, pulse rate 66, respiratory 18, temperature 98.6 F, saturating oxygen 98% on room air Pertinent lab findings are hemoglobin 17.9, WBC 12.1, hematocrit 51.1, troponin 0.081. Urinalysis urine protein 1+, urine glucose [address] segment depression in lead I, lead II, V2,V4, V5, Treatment given in ED started on heparin drip, Clonidine 0.2 mg, aspirin mg, nitroglycerin 0.4 mg. Hospital: During patient's hospital course, he underwent successful PCI and stent placement of the ramus intermedius and unsuccessful angioplasty PTCA of the circumflex artery for his presentation of NSTEMI on 03/19. He was then started on the combination of aspirin and Brilinta after completion of the above procedures. He was also treated with IV hydralazine, PO clonidine, PO amlodipine, and PO Coreg for his hypertensive emergency and chronic hypertension. Patient was deemed clinically stabilized by 03/20 and discharged home with Brilinta and aspirin to be continued in the outpatient setting. Patient is safe to discharge to home. Further discharge instructions below. - You have been started on a medication Brilinta to prevent blood clots on your stent. Take as directed below - Take Aspirin once a day - Take pantoprazole once a day - No heavy lifting for 1 week. Keep bandage dry - Follow up with Cardiology, Dr. Moeller in 1 week. You will need another stent as outpatient - Follow up with your primary care physician within 1 week of discharge. If you do not have a primary care physician, please follow up with the [facility] Residents clinic ([phone]) ? If you experience any new, worsening or persistent symptoms either call your primary doctor, or dial 911 or present to the emergency department. # NSTEMI, acute coronary syndrome, resolved # CAD, s/p 03/19 coronary stenting # Hypertensive Emergency, resolved # Hypertension # Erythrocytosis # Diabetes # Hyperlipidemia Status at Discharge Cognitive/Behavioral Status at Discharge: stable Functional Status at Discharge: independent ambulation Overall Status at Discharge: patient is back to baseline Patient's care plan was discussed with my attending, Dr. Waldron, and senior re sident, Dr. Louie. Matt Bryan, DO Internal Medicine, PGY-1 Time Spent with Patient Time attestation: Total time spent providing and/or coordinating discharge services: Time spent: Greater than 30 minutes Exam Vital Signs Temp Pulse Resp BP Pulse Ox O2 Del Method 98.8 F 61 20 146/88 H 98 Room Air 03/20/25 11:51 03/20/25 11:51 03/20/25 11:51 03/20/25 11:51 03/20/25 11:51 03/20/25 11:51 Narrative Exam General: A/O x3, no acute distress. Skin: Warm, dry, intact, no obvious rash. Head: Normocephalic, atraumatic. Eyes: PERRL, EOMI. Anicteric, vision grossly intact. Ears: No ear pain, no ear discharge, Hearing grossly intact. Nose: No nasal discharge. Mouth/Throat: Oral mucosa moist. No obvious lesions in oropharynx. Neck: Neck supple, non-tender, no cervical lymphadenopathy. Cardiovascular: Regular rate and rhythm, no murmur, no JVD or carotid bruits. +S1/S2. Respiratory: Bilateral lungs are clear to auscultation, respirations unlabored, no crackles, no wheezing. No accessory muscle use. Gastrointestinal: Soft, nontender, non-distended, no palpable masses. No guarding or rebound tenderness. Peristalsis present. Extremities: Symmetrical, no significant deformities. No edema, no cyanosis, no clubbing. 2+ radial pulse bilaterally, 2+ posterior tibial pulse bilaterally. Neuro: No focal deficits observed. Conversant, moving all extremities. No overt cerebellar signs/incoordination. Psychiatric: Cooperative, appropriate affect. Discharge Plan Plan Patient Disposition: HOME (Self Care) Patient condition on transfer: Stable Care Plan Goals: - You have been started on a medication Brilinta to prevent blood clots on your stent. Take as directed below - Take Aspirin once a day - Take pantoprazole once a day - No heavy lifting for 1 week. Keep bandage dry - Follow up with Cardiology, Dr. Moeller in 1 week. You will need another stent as outpatient - Follow up with your primary care physician within 1 week of discharge. If you do not have a primary care physician, please follow up with the [facility] Residents clinic ([phone]) ? If you experience any new, worsening or persistent symptoms either call your primary doctor, or dial 911 or present to the emergency department. Prescriptions/Referrals Prescriptions/Med Rec: New carvedilol 12.5 mg Tablet 25 mg PO BIDWM 30 Days Qty: 120 0RF nitroglycerin 0.4 mg Tablet, Sublingual 0.4 mg SL Q5MIN PRN (Reason: Chest Pain) 14 Days Qty: 14 0RF pantoprazole 40 mg tablet,delayed release (DR/EC) 40 mg PO QDAY 30 Days Qty: 30 0RF aspirin 81 mg Tablet,Delayed Release (Dr/Ec) 81 mg PO QDAY 30 Days Qty: 30 2RF ticagrelor [Brilinta] 90 mg tablet 90 mg PO BID 30 Days Qty: 60 2RF Continued amlodipine [Norvasc] 10 MG tablet 10 mg PO QDAY Qty: 0 valsartan [Diovan] 160 mg Tablet 160 mg PO QDAY multivitamin Tablet 1 tab PO .QD fexofenadine 180 mg tablet 180 mg PO .QD ergocalciferol (vitamin D2) 1,250 mcg (50,000 unit) capsule 1,250 mcg PO QWEEK Synjardy XR 12.5-1,000 mg tablet, IR - ER, biphasic 24hr 1 tab PO BID atorvastatin 80 mg Tablet 80 mg PO QDAY 30 Days Qty: 30 2RF Discontinued atorvastatin 20 mg tablet 20 mg PO QDAY Patient Comments: TAKE 1 TABLET BY MOUTH EVERY DAY losartan-hydrochlorothiazide 100-25 mg tablet 1 tab PO .QD Patient Comments: TAKE 1 TABLET BY MOUTH EVERY DAY propranolol 20 mg tablet 20 mg PO Q8H Referrals: Tru Paris [Primary Care Provider] Katlin Moeller MD [Physician, Cardiology] Patient/Caregiver Discharge Instructions Discharge Activity: activity as tolerated Education Materials: Brilinta Oral Tablet 90 mg, Cardiac Catheterization Dc, Preventing Surgical Site Infections, Cardiac Cath Transradial Print Language: Setswana Activity Restrictions/Additional Instructions: Please call to Schedule a follow up appointment with Dr. Moeller, (Can Striper), to be seen in his office within one week upon discharge Address: [address] [place] [id number] or operate any motor vehicle, heavy equipment, or machinery with in 24 hours of procedure. DO NOT perform any activity that requires you to be fully alert with in 24hrs of procedure. DO NOT sign any documentation with in 24hrs of procedure that requires a full understanding of what you are signing for. Do not perform any strenuous physical activity in the next 5 days. Do not bend or twist your wrist for the next 3 days. Do no lift anything that weights equal or over 5 pounds with your right Arm/Hand within the next 3 days. Perform light activity only with your right Hand/Arm for the next 3 days. Drink plenty of fluids to flush contrast used in procedure out of your body Keep your blood pressure under control. If you take blood pressure medication, continue to take it as prescribed, if not contraindicated by your doctor, doing so; helps to prevent post-complications such as bleeding. Take your new/previous medication as directed by the doctor. If there is no changes, continue to take medication at your usual time. After 3 days, start increasing the level of physical activity with your Hand/Arm gradually in the following 5 days. Look out for signs of infection such as tenderness, redness, or drainage to your right wrist. If any, report them to your primary care doctor immediately. You will go home with your right wrist covered by two different dressings, a clear dressing and a Coban wrap. The Coban wrap (Color Dressing on Top) must be removed in 24 hours after it was placed. The clear dressing (Dressing that is attached to your skin) Must be removed in 48 hours after it was placed. If you decide to shower or to take a bath, NOT RECOMMENDED IN THE FIRST 24 HOURS AFTER THE PROCEDURE; please keep dressing clean and dry by covering it. Or, if you prefer, take a sponge bath instead. After removing your dressing, you can gently clean your surgical site with soap and water and pad dry it. DO NOT rub site to prevent complication such as bleeding. DO NOT apply any lotions, creams, or powders on the surgical site until your skin completely heals (5 days or more). No pools, hot tubs, baths were wrist stays submerged underwater until your skin completely heals A small bruise or bump is normal but a bruise that increases in size and color, a lump (Hard or soft) that develops and is? increasing in size immediately? place approx 20 min of pressure on the site until the bump has disappeared and stops growing? and notify apartment locator. ? Should you experience any type of complications such as pain, change in color, change in temperature, numbness, or loss of sensation in your Right arm/Wrist, Chest pain, or shortness of breath; PLEASE GO TO THE NEAREST EMERGENCY ROOM IMMEDIATELY. Should you have any other questions or concerns on regards today?s procedure; feel free to contact us to Typo Machine Operator . Stand Alone Forms: Caitlin Award Info., Patient Portal Info Letter Discharge Order Discharge Orders: Discharge (Routine); Ordered 03/20/25 Ordered By: Russ Louie Quality Discharge Quality Measures none MD Attestestation MD Attestation I have discussed and was present for the essential components of the discharge history, physical examination, diagnosis, and discharge treatment plan with the resident. I agree with the patient's discharge care as documented by the resident and amended herein by me. Von Waldron, . The patient understood all discharge instructions, all questions were answered satisfactorily. The patient was instructed to return to the Emergency Department is symptoms worsened or persisted. Patient status post cardiac catheterization, 1 stent placed in the ramus intermedius. Patient will be discharged on Brilinta and aspirin, per cardiology recommendations see resident note above for additional details. The patient was stable, afebrile, tolerating p.o. intake and ambulatory at time of discharge home. Although this document has been carefully reviewed, there may still be some phonetic and other typographical errors. These errors are purely grammatical due to imperfections in the software program and should not be construed in any way to compromise the substance of the patient's medical care during this visit. Time Spent on discharge:
--- NOTE | 2025-03-20 14:47 | ESOP_ITS ---
RE: TRUNG STEVENSON : 1960 DATE OF OPERATION: 03/19/2025 PROCEDURES PERFORMED: 1. Diagnostic left heart cardiac catheterization, selective coronary angiogram, left ventricular angiogram. CPT 43988. 2. PTCA and stent placement of the ramus intermedius, placement of drug-eluting stent, 2.5 x 15 mm Medtronic stent [place] drug-eluting stent placement to ramus intermedius. Pre- procedure stenosis 99%, post procedure stenosis 0%. Pre-procedure SUZANNE flow 1, post procedure SUZANNE flow 3. CPT code 24282. 4. Unsuccessful PTCA angioplasty of the mid left circumflex artery due to inability to cross the lesion with the balloon catheter. CPT code 76734. 6. Conscious sedation 1 hour duration. DIAGNOSES: Coronary artery disease, acute myocardial infarction, [id number]-TM-[id number] elevation myocardial infarction. HISTORY AND INDICATIONS: The patient is a 64-year-old male with a past medical history of hypertension doing fairly well until recently came to the hospital with severe substernal chest pain, crushing chest pain, left arm pain. Acute myocardial infarction, troponins significantly elevated and [id number]-NK-[id number] elevation myocardial infarction hence coronary angiogram, cardiac catheterization recommended to assess if the patient is a candidate for coronary intervention, PCI. DESCRIPTION OF PROCEDURE: Patient was brought to the cardiac catheterization laboratory. He was given 2 mg of Versed and 50 mcg of fentanyl for conscious sedation. Right radial approach was taken. Right radial artery cannulated by micropuncture technique. 6-Chinese Glidesheath introduced. Selective right and left coronary angiogram performed with a 5- Chinese TIG 4 diagnostic catheter. Left heart catheterization and left ventricular angiogram performed with a TIG 4 diagnostic catheter. The patient tolerated the procedure well, no complications. CARDIAC CATHETERIZATION FINDINGS: HEMODYNAMICS: Left ventricular pressure 116/10, aortic pressure 116/70, no gradient across the aortic valve. Left ventricular angiogram showed normal left ventricular wall motion. Ejection fraction is 70%. CORONARY ANGIOGRAM FINDINGS: Right coronary artery is large and dominant, gives off PDA and posterolateral branches, appear normal. Posterior descending artery showed evidence of a moderate 60-70% stenosis in the mid segment of the posterior descending artery. It is a long lesion. Posterolateral branches have mild plaque. Left coronary system: Left main coronary artery showed mild calcification. Left anterior descending artery showed evidence of aagu-jm-piterpjs atherosclerotic plaque and evidence of approximately 30% stenosis in the mid left anterior descending artery. Left circumflex artery is small and gives off only one posterolateral branch. The mid circumflex artery after the ramus intermedius showed evidence of a 95% eccentric stenosis. Ramus intermedius which appears to be the culprit lesion showed SUZANNE-1 flow. There is a subtotal 99% stenosis of the proximal segment. This is the culprit lesion and culprit vessel, hence PCI was recommended. The patient was given additional dose of heparin in addition to radial cocktail __ heparin given. ACT was therapeutic. Proceeded with the PCI of the ramus intermedius. A 6-Chinese JL4 guiding catheter was used to cannulate the left main coronary artery and 0.014 Runthrough guidewire was used to cross the lesion successfully. A 2 mm balloon was used to predilate the lesion. Subsequently, 2.5 x 15 mm [place] Medtronic drug-eluting stent was deployed with 3 inflations with excellent angiographic results. After the PCI of the ramus intermedius, we proceeded with PCI of the circumflex artery. I was able to advance the guidewire, a Wood Calker 50 guidewire and crossed the lesion successfully. Runthrough was unsuccessful. Initially, 2.5 mm balloon was used to dilate but could not cross the lesion. 2.0 mm balloon was used, again could not cross the lesion. Proceeded with a 1.5 mm balloon by disco [email or web address], also could not cross the lesion. At this point, I felt the patient has heavily calcified severe stenosis and may require rotational atherectomy. SUZANNE flow was still 3, hence recommended to have PCI of the left circumflex artery at a later date. SUMMARY OF FINDINGS: 1. Acute iqu-BQ-vmzqqds elevation myocardial infarction with 99% stenosis of the ramus intermedius, underwent successful PCI and stent placement of the ramus intermedius. Pre-procedure stenosis 99%, post procedure stenosis 0%. SUZANNE flow pre-procedure 1, post procedure 3. 2. Unsuccessful angioplasty PTCA of the circumflex artery due to heavy calcification and severe stenosis, unable to cross the lesion with balloon catheter. Pre-procedure stenosis 95%, post procedure stenosis 95%. Pre-procedure SUZANNE flow 3, post procedure SUZANNE flow 3. Complications none. Estimated blood loss none. TR band was applied., hemostasis secured. Patient admitted to the hospital overnight can be discharged home tomorrow if he feels well. On aspirin and Brilinta combination. DT: 14:25:30 TT: 14:46:00 Ref: [id number] - TID: [id number] MTDD
== END 2025-03-20 17:05 | disposition home or self-care (01) | DRG 281 ==
LOC: SERX 20:50 → SERHOLD 22:36 → S2SX 03-19 06:39
PROVIDERS: Internal Medicine Cardiovascular Disease; Nurse Practitioner Family; Admitting Provider Internal Medicine; Emergency Provider Emergency Medicine; PCP Physician Assistant; Visit Provider Student in an Organized Health Care Education/Training Program
PROC: 4A023N7 Measurement of Cardiac Sampling and Pressure, Left Heart, Percutaneous Approach (ICD-10-PCS; principal; 2025-03-19 09:00)
DX: I21.4 Non-ST elevation (NSTEMI) myocardial infarction (principal); I16.1 Hypertensive emergency; I10 Essential (primary) hypertension; E78.5 Hyperlipidemia, unspecified; D75.1 Secondary polycythemia; I25.10 Atherosclerotic heart disease of native coronary artery without angina pectoris; E11.65 Type 2 diabetes mellitus with hyperglycemia; E83.39 Other disorders of phosphorus metabolism; Z79.02 Long term (current) use of antithrombotics/antiplatelets; Z79.82 Long term (current) use of aspirin; Z79.899 Other long term (current) drug therapy; Z95.5 Presence of coronary angioplasty implant and graft
CPT/HCPCS: 36415; 71045; 80053; 80061; 81001; 83036; 83735; 83880; 84100; 84443; 84484; 85025; 85347; 85379; 85610; 85730; 87040; 93005; 93225; 93306; 96374; 99152; 99153; 99284; A4649; C1725; C1769; C1874; C1887; C1894; J0153; J0168; J0282; J0461; J1643; J1644; J1815; J2250; J2270; J2312; J2371; J3010; J3480; J3490; J7040; Q9967; A9270; J2305

== ENCOUNTER → 2025-05-28 | Outpatient (CLI) | payer MEDICARE, MEDICAID, SELFPAY ==
--- NOTE | 2025-05-28 14:00 | XR_ITS ---
Examination: Retroperitoneal ultrasound, complete Technique: Multiple high resolution grayscale images of the retroperitoneum obtained, including kidneys and bladder. Exam date and time: May 28, 2025, 1358 hours INDICATIONS: Chronic kidney disease stage III on laboratory examination this month. FINDINGS: Right kidney 11.4 cm renal cortex 1.3 cm Multiple benign cysts, the largest in the lower pole 4.6 cm Left kidney 13.4 cm cortex 1.6 cm Multiple cysts, the largest in the upper pole 28 mm Upper pole 8 mm calculus No hydronephrosis Contracted urinary bladder Prostate 3.2 x 4.1 x 4.9 cm volume 34 cc prostate nodule mid anterior 12 x 8 x 14 mm IMPRESSION: Bilateral renal cortical thinning Multiple benign renal cysts 7 mm upper pole nonobstructing left renal calculus Prostate nodule 12 x 8 x 14 mm, recommend transrectal prostate sonography follow-up
== END | disposition home or self-care (01) ==
PROVIDERS: PCP Internal Medicine Nephrology; Referring Provider Internal Medicine Nephrology; Visit Provider Internal Medicine Nephrology
DX: N28.89 Other specified disorders of kidney and ureter (principal); N28.1 Cyst of kidney, acquired; N20.0 Calculus of kidney; N40.2 Nodular prostate without lower urinary tract symptoms
CPT/HCPCS: 76770